=== PATIENT | female | born 1960 | race Caucasian/White ===

== ENCOUNTER → 2016-10-18 | Outpatient (CLI) | payer OTHER ==
[~2016-10-18] MED LIST: ADVIL PO; AMIT25TA2 PO; COLA100C2 PO; DULO1CAP2 PO; DULO20CA PO; FENT12PA TD; FLEXERIL PO; HYDROCODONE PO; LIDO5DIS EX; LOVA20TA2 PO; LYRI75CA OR; MELA5CAP3 PO; NEUR300C OR; PERC5TAB8 PO; TYLENOL #3 OR; VITAMIN D PO; ZOFR20TA PO; ambien PO; pennsaid TOP; tps cream
--- NOTE | 2016-11-09 00:52 | ECWPNPC ---
PATIENT NAME: COLTON BELL : 1960 GENDER: FEMALE VISIT DATE: 10/18/2016 DISCHARGE DATE: 10/18/16 1128 VISIT LOCKED DATE TIME: PHYSICIAN: MARIA ESTHER CANO RESOURCE: MARIA ESTHER CANO REASON FOR APPOINTMENT 1. BACK HISTORY OF PRESENT ILLNESS HISTORY OF PRESENT ILLNESS: HERE FOR F/U CHRONIC LBP BILAT. POSTERIOR SHOOTING LEG PAIN L>R .RATING PAIN7/10VAS.HERE FOR MEDICINE MANAGEMENT . THIS IS A WORK RELATED INJURY IN 2008.HX OF MULTPLE MEDICATION INTOLERANCES THAT WE HAVE TRIALED OVER THE YEARS.PAIN IS AGGREVATED BY PROLONGED SITTING OR STANDING.DESCRIBES PAIN CONSTANT STABBING AND THROBBING.REPORTS SHE HAS BEEN OUT OF FENTANYL PATCH 12 MCG Q72 X 3 MONTHS WHILE IN [place] AND SHE HAS EXPERIENCED AN ESCALATION IN PAIN.REPORTING ELECTRICAL SENSATIONS PERIODICALLY IN LOWER EXTREMITIES.TAKING GABAPENTIN 300MG BID. NOTICED IMPROVEMENT WITH SLEEP .REPORTS IMPROVEMENT IN CONSTIPATION WITH TAKING COLACE 100MG BID. PAIN THE PATIENT DESCRIBES THE PAIN... THE PATIENT DESCRIBES THE PAIN... THE PATIENT DESCRIBES THE PAIN... THE PATIENT DESCRIBES THE PAIN... THE PATIENT DESCRIBES THE PAIN... THE PATIENT DESCRIBES THE PAIN... FALL RISK SCREENING: SCREENING :NO FALLS IN THE PAST YEAR CURRENT MEDICATIONS TAKING ADVIL 200 MG TABLET 1 TABLET NEEDED ORALLY EVERY 6 HRS TAKING VITAMIN D 2000 UNIT TABLET 1 TABLET ORALLY BID TAKING FLONASE 50 MCG/DOSE INHALER 1 SPRAY IN EACH NOSTRIL NASALLY ONCE A DAY TAKING GABAPENTIN 300 MG CAPSULE DIRECTED ORALLY BID TAKING COLACE 100 MG CAPSULE 1 CAPSULE NEEDED ORALLY BID TAKING FENTANYL 12 MCG/HR PATCH 72 HOUR 1 PATCH TO SKIN TRANSDERMAL 1 PATCH [id number] MEDICATION LIST REVIEWED AND RECONCILED WITH THE PATIENT ALLERGIES LATEX (FOR ALLERGY USE ONLY): RASH: ALLERGY SURGICAL HISTORY HYSTERECTOMY BACK SURGERY LEFT CATARACT HOSPITALIZATION/MAJOR DIAGNOSTIC PROCEDURE NO HOSPITALIZATION HISTORY. REVIEW OF SYSTEMS CONSTITUTIONAL: ANY CHANGE IN YOUR MEDICAL CONDITION? NO . CHILLS NO . FEVER NO . INFECTION: DO YOU HAVE NEW INFECTIONS? NO . DO YOU HAVE HISTORY OF MRSA? NO . MUSCULOSKELETAL: ANY NEW PATTERNS OF PAIN OR NUMBNESS? YES. PT STATES SHE HAS NOT BEEN USING FENTANYL PATCH BECAUSE IT IS SUCH A HASSEL TO GET IT IN [facility] IN [place]. PT STATES SHE RETURNED FROM [place] AUGUST. PT STATES SHE DOES NOT HAVE PROBLEMS GETTING FENTANYL PATCH AT [facility] HERE IN [place]. PT STATES SHE NEEDS A NEW SCRIPT. PT RATES PAIN 01/04&NBSP;. GASTROENTEROLOGY: ANY NEW CHANGE IN BOWEL CONTROL? NO . GENITOURINARY: ANY NEW CHANGE IN BLADDER CONTROL? NO . IS THERE A CHANCE YOU COULD BE ? NO . HEMATOLOGY/LYMPH: DO YOU TAKE ANY BLOOD THINNERS? (FOR EXAMPLE- COUMADIN, PLAVIX, AGGRENOX, PLATEL, PRADAXA, OR XARELTO) NO . WHEN WAS YOUR LAST DOSE? DATE: TIME: . NEUROLOGY: HAVE YOU FALLEN IN THE PAST 6 MONTHS? NO . ANY NEW EXTREMITY NUMBNESS OR WEAKNESS? NO . CARDIOLOGY: DO YOU HAVE A PACEMAKER OR DEFIBRILLATOR? NO . RESPIRATORY: HAVE YOU BEEN SICK IN THE PAST WEEK? NO . FEVER NO . FLU LIKE SYMPTOMS? NO . COUGH NO . INTEGUMENTARY: DO YOU HAVE ANY RASHES OR OPEN SORES? NO . ALLERGIC/IMMUNO: ARE YOU ALLERGIC TO SHELLFISH OR IV DYE? NO . ANY NEW ALLERGIES? NO . PSYCHIATRIC: DO YOU HAVE THOUGHTS OF HURTING YOURSELF OR SOMEONE ELSE? NO . ARE YOU ABUSED, NEGLECTED, OR IN AN UNSAFE ENVIRONMENT? NO . ENDOCRINOLOGY: ARE YOU DIABETIC? YES, FENTANYL PATCH . OTHER: DO YOU NEED ANY PRESCRIPTIONS? NO . IF YES, PLEASE LIST: ____ . ANY NEW PROBLEMS WITH YOUR MEDICATIONS? NO . WHEN DID YOU LAST EAT? ____ . WHEN DID YOU LAST DRINK? ____ . WHAT DID YOU LAST DRINK? ____ . NAME OF PERSON DRIVING YOU HOME? ____ . DO YOU HAVE ANY OTHER QUESTIONS OR CONCERNS NO . REVIEWED BY: PROVIDER: MARIA ESTHER CORRAL . VITAL SIGNS WT 216.4 LBS, HT 70 IN, BMI 31.05 INDEX, BP 138/67 MM HG, HR 76 /MIN, RR 16 /MIN, TEMP 97.4 F, OXYGEN SAT % 97%, SAFE IN ENV? (Y/N) Y, NA INITIALS SC 11:00, REVIEWED BY: EM. EXAMINATION GENERAL EXAMINATION: LUNGS:LUNG SOUNDS ARE CLEAR. HEART:HEART RATE REGULAR. MUSCULOSKELETAL:*, MUSCLE STRENGTH TESTING 2/5 BILATERAL LOWER EXT., PALPATION: POSITIVE FOR PAIN OVER L/S SPINE. POSITIVE FOR PAIN OVER L/S PARASPINALS.WELL HEALED SURGICAL SCAR OVER L/S SPINE. DIAGNOSTIC: . ASSESSMENTS POST LAMINECTOMY SYNDROME - M96.1 (PRIMARY) TREATMENT POST LAMINECTOMY SYNDROME REFILL GABAPENTIN CAPSULE, 300 MG, DIRECTED, ORALLY, BID, 30 DAY(S), 60, REFILLS 5 REFILL COLACE CAPSULE, 100 MG, 1 CAPSULE NEEDED, ORALLY, BID, 30 DAY(S), 60 CAPSULE, REFILLS 5 REFILL FENTANYL PATCH 72 HOUR, 12 MCG/HR, 1 PATCH TO SKIN, TRANSDERMAL, 1 PATCH [id number], 30 DAY(S), 10, REFILLS 0 NOTES: ISTOP REGISTRY REVIEWED AND DEMNOSTRATES COMPLLIANCE. BRINGS IN MEDICATIONS WHICH IS APPROPRIATE FOR WHAT WAS DISPENSED. RECENT URINE TOXICOLOGY REVIEWED. NO UNAUTHORIZED MEDICATIONS. NO ILLICIT SUBSTANCES AND PRESCRIBED MEDICATIONS WERE PRESENT. , RISKS AND BENEFITS OF NARCOTIC/OPIOD MEDICATIONS WERE REVIEWED WITH PATIENT - THIS INCLUDES BUT IS NOT LIMITED TO RISK OF DEPENDANCE/DEVELOPMENT OF ADDICTION, MOOD DISTURBANCE AND DEPRESSION, OSTEOPOROSIS, HORMONAL AND LABIDAL CHANGES, RESPIRATORY DEPRESSION AND . PATIENT IS ADVISED NOT TO DRIVE WHILE ON THESE MEDICATIONS. PROCEDURES PN WORKMANS' COMP OPINION IN YOUR OPINION, WAS THE INCIDENT THAT THE PATIENT DESCRIBED THE COMPETENT MEDICAL CAUSE OF THIS INJURY/ILLNESS? YES ARE THE PATIENT'S COMPLAINTS CONSISTENT WITH HIS/HER HISTORY OF THE INJURY/ILLNESS? YES IS THE PATIENT'S HISTORY OF THE INJURY/ILLNESS CONSISTENT WITH YOUR OBJECTIVE FINDING? YES WHAT IS THE PERCENTAGE OF TEMPORARY IMPAIRMENT? MODERATE TO MARKED = 66.7% IS THE PATIENT WORKING? NO DOCTOR ON SITE: BETSY QUESADA MD PROCEDURE CODES FA211 ESTABILISHED PATIENT [facility] FACILITY CHARGE DISPOSITION & COMMUNICATION FOLLOW UP [address] CHASE-W/C ELECTRONICALLY SIGNED BY ELLIS FARFAN ON 11/08/2016 AT 01:53 PM EDT DISCLAIMER : THIS IS A VISIT SUMMARY EXTRACTED FROM THE [employer] CHART. IT IS NOT A COPY OF THE [employer] PROGRESS NOTE. RONAL
== END ==
LOC: M PAIN 10:40
PROVIDERS: ATTEND Nurse Practitioner Family
DX: G89.29 Other chronic pain (principal); M96.1 Postlaminectomy syndrome, not elsewhere classified; Z79.1 Long term (current) use of non-steroidal anti-inflammatories (NSAID); Z79.899 Other long term (current) drug therapy; Z79.891 Long term (current) use of opiate analgesic

== ENCOUNTER → 2016-11-15 | Outpatient (CLI) | payer OTHER ==
--- NOTE | 2016-11-28 23:42 | ECWPNPC ---
PATIENT NAME: COLTON BELL : 1960 GENDER: FEMALE VISIT DATE: 11/15/2016 DISCHARGE DATE: 11/15/16 1654 VISIT LOCKED DATE TIME: PHYSICIAN: BETSY CHASE RESOURCE: BETSY CHASE REASON FOR APPOINTMENT 1. W/C HISTORY OF PRESENT ILLNESS HISTORY OF PRESENT ILLNESS: PAIN THE PATIENT DESCRIBES THE PAIN... 56 YEAR OLD FEMALE PATIENT WITH HISTORY OF CHRONIC BACK AND NECK PAIN. PATIENT DESCRIBES THE PAIN ACHING, SHARP, THROBBING, AND SHOOTING WITH A PAIN SCORE OF 10/10 ON TODAY'S VISIT. 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 PATIENT REPORT OF HAVING BACK SURGERY IN SEPTEMBER OF 2009 AND IT DID NOT WORK FOR HER. PATIENT REPORTS OF DIFFICULTIES SLEEPING AT NIGHT DUE TO SPASTICITY AND CRAMPS. PATIENT REPORTS OF RADIATING PAIN DOWN BOTH LEGS FROM HER BACK. PATIENT DENIES UNEXPLAINABLE WEIGHT LOSS, FEVER, CHILLS, NEW CHANGES ON HER URINARY OR BOWEL CONTROL. FALL RISK SCREENING: SCREENING :NO FALLS IN THE PAST YEAR CURRENT MEDICATIONS TAKING ADVIL 200 MG TABLET 1 TABLET NEEDED ORALLY EVERY 6 HRS TAKING VITAMIN D 2000 UNIT TABLET 1 TABLET ORALLY BID TAKING FLONASE 50 MCG/DOSE INHALER 1 SPRAY IN EACH NOSTRIL NASALLY ONCE A DAY TAKING GABAPENTIN 300 MG CAPSULE DIRECTED ORALLY BID, NOTES: SENT TO [facility]ST TIME TAKING COLACE 100 MG CAPSULE 1 CAPSULE NEEDED ORALLY BID TAKING FENTANYL 12 MCG/HR PATCH 72 HOUR 1 PATCH TO SKIN TRANSDERMAL 1 PATCH [id number], NOTES: WENT TO [facility] MEDICATION LIST REVIEWED AND RECONCILED WITH THE PATIENT PAST MEDICAL HISTORY NO MEDICAL HISTORY. ALLERGIES LATEX (FOR ALLERGY USE ONLY): RASH: ALLERGY SURGICAL HISTORY HYSTERECTOMY BACK SURGERY LEFT CATARACT FAMILY HISTORY NO FAMILY HISTORY DOCUMENTED. SOCIAL HISTORY GENERAL: TOBACCO USE ARE YOU A:CURRENT SMOKER PATIENT COUNSELED ON THE DANGERS OF TOBACCO USE AND URGED TO QUIT:11/24/2015 ARE YOU INTERESTED IN QUITTING?NOT READY TO QUIT COUNSELED THE PATIENT ON SMOKING EFFECTS, EDUCATION [id number]/2016 LEARNING BARRIERS / SPECIAL NEEDS ABILITY TO UNDERSTAND VERBAL INSTRUCTIONS GOOD, ABILITY TO UNDERSTAND WRITTEN INSTRUCTIONS GOOD, KNOWLEDGE OF EDUCATIONAL NEEDS/TREATMENT PLAN GOOD, MORMONISM? NO, LEARNING PREFERENCE NO PREFERENCE, ORIENTED TO PLAN OF CARE: PATIENT, SIGNIFICANT OTHER, PAIN MANAGEMENT PATIENT, SIGNIFICANT OTHER. PAIN CLINIC PFS, CLERGY, PUBLIC HEALTH REFERRALS PFS REFERRAL NEEDED?NO CLERGY REFERRAL NEEDED?NO PUBLIC HEALTH REFERRAL NEEDED?NO WAS THE PROVIDER NOTIFIED OF ANY PERTINENT INFO?YES PATIENT: DENIES ABUSE OR MISUSE OF ANY MEDICATION. ADVANCE DIRECTIVES HEALTH CARE PROXY?NO POWER OF SALES DEVELOPER?NO SOCIAL HISTORY PATIENTDENIES ABUSE OR MISSUSED OF ANY MEDICATION HOSPITALIZATION/MAJOR DIAGNOSTIC PROCEDURE NO HOSPITALIZATION HISTORY. REVIEW OF SYSTEMS REVIEWED BY: PROVIDER: . CONSTITUTIONAL: ANY CHANGE IN YOUR MEDICAL CONDITION? NO . CHILLS NO . FEVER NO . INFECTION: DO YOU HAVE NEW INFECTIONS? NO . DO YOU HAVE HISTORY OF MRSA? NO . MUSCULOSKELETAL: ANY NEW PATTERNS OF PAIN OR NUMBNESS? NO . GASTROENTEROLOGY: ANY NEW CHANGE IN BOWEL CONTROL? NO . GENITOURINARY: ANY NEW CHANGE IN BLADDER CONTROL? NO . IS THERE A CHANCE YOU COULD BE ? NO . HEMATOLOGY/LYMPH: DO YOU TAKE ANY BLOOD THINNERS? (FOR EXAMPLE- COUMADIN, PLAVIX, AGGRENOX, PLATEL, PRADAXA, OR XARELTO) NO . WHEN WAS YOUR LAST DOSE? DATE: TIME: . NEUROLOGY: HAVE YOU FALLEN IN THE PAST 6 MONTHS? NO . ANY NEW EXTREMITY NUMBNESS OR WEAKNESS? NO . CARDIOLOGY: DO YOU HAVE A PACEMAKER OR DEFIBRILLATOR? NO . RESPIRATORY: HAVE YOU BEEN SICK IN THE PAST WEEK? NO . FEVER NO . FLU LIKE SYMPTOMS? NO . COUGH NO . INTEGUMENTARY: DO YOU HAVE ANY RASHES OR OPEN SORES? NO . ALLERGIC/IMMUNO: ARE YOU ALLERGIC TO SHELLFISH OR IV DYE? NO . ANY NEW ALLERGIES? NO . PSYCHIATRIC: DO YOU HAVE THOUGHTS OF HURTING YOURSELF OR SOMEONE ELSE? NO . ARE YOU ABUSED, NEGLECTED, OR IN AN UNSAFE ENVIRONMENT? NO . ENDOCRINOLOGY: ARE YOU DIABETIC? NO . OTHER: DO YOU NEED ANY PRESCRIPTIONS? NO . IF YES, PLEASE LIST: ____ . ANY NEW PROBLEMS WITH YOUR MEDICATIONS? NO . WHEN DID YOU LAST EAT? ____ . WHEN DID YOU LAST DRINK? ____ . WHAT DID YOU LAST DRINK? ____ . NAME OF PERSON DRIVING YOU HOME? ____ . DO YOU HAVE ANY OTHER QUESTIONS OR CONCERNS NO . VITAL SIGNS WT 218.8 LBS, HT 70 IN, BMI 31.39 INDEX, BP 150/86 MM HG, HR 86 /MIN, RR 18 /MIN, TEMP 98.0 F, OXYGEN SAT % 97%, NA INITIALS SC 14:52, REVIEWED BY: NL. EXAMINATION : PATIENT IS ALERT O X 3 AND COOPERATIVE. PATIENT AMBULATES WITH A CANE ON THE LEFT HAND, AND HAS AN ANTALGIC GAIT. PATIENT IS ABLE TO FLEX HER BACK TO 10 DEGREES AND EXTEND TO 2 DEGREES WITH PAIN AND DIFFICULTIES. THERE IS A SURGICAL SCAR 4 INS IN LENGTH IN THE LOW BACK. BOTH LEGS ARE WEAKER, WITH THE RIGHT LEG SLIGHTLY MORE WEAKER. MRI OF THE LUMBAR SPINE DONE ON 11/23/2014 SHOWS POST OPERATIVE CHANGES WITH STENOSIS. ASSESSMENTS LOW BACK PAIN - M54.5 (PRIMARY) POSTLAMINECTOMY SYNDROME, NOT ELSEWHERE CLASSIFIED - M96.1 TREATMENT LOW BACK PAIN NOTES: WE DISCUSSED SEVERAL ISSUES WITH MS. BELL'S PAIN MANAGEMENT CASE. AT THIS TIME I WILL HAVE THE PATIENT START ON GABAPENTIN FOR THE NEUROPATHIC PAIN DOWN THE LEGS AND ZANAFLEX FOR THE SPASTICITY. PATIENT BROUGHT HER MEDICATION INSTRUCTED THAT SHE NEEDS TO DO FOR EVERY FOLLOW UP. UTOX DONE ON 11/24/2014 SHOWS CONSISTENT RESULTS WITH WAS IS BEING PRESCRIBED FOR THE PATIENT. PATIENT WILL FOLLOW UP WITH ME IN 4 WEEKS. INSTRUCTIONS WERE GIVEN, QUESTIONS WERE ANSWERED, PATIENT REPORTS UNDERSTANDING AND AGREES WITH THE PLAN. I, FABIOLA HAMILTON, DOCUMENTED THE ABOVE INFORMATION ACTING A SCRIBE FOR DR. CHASE. I HAVE REVIEWED THE ABOVE DOCUMENT, WRITTEN BY FABIOLA BARRERAIBZuleima AND I VERIFY THAT IT IS ACCURATE. OTHERS START GABAPENTIN CAPSULE, 300 MG, 1 CAPSULE, ORALLY FOR PAIN, BEFORE BEDTIME, 30 DAY(S), 30, REFILLS 1 START ZANAFLEX CAPSULE, 2 MG, 1 CAPSULE NEEDED, ORALLY FOR SPASMS AND PAIN, BEFORE BEDTIME, 30 DAY(S), 60, REFILLS 1 PROCEDURES PN WORKMANS' COMP OPINION IN YOUR OPINION, WAS THE INCIDENT THAT THE PATIENT DESCRIBED THE COMPETENT MEDICAL CAUSE OF THIS INJURY/ILLNESS? YES ARE THE PATIENT'S COMPLAINTS CONSISTENT WITH HIS/HER HISTORY OF THE INJURY/ILLNESS? YES IS THE PATIENT'S HISTORY OF THE INJURY/ILLNESS CONSISTENT WITH YOUR OBJECTIVE FINDING? YES WHAT IS THE PERCENTAGE OF TEMPORARY IMPAIRMENT? MODERATE TO MARKED = 66.7% IS THE PATIENT WORKING? NO DOCTOR ON SITE: BETSY QUESADA MD PROCEDURE CODES FA211 ESTABILISHED PATIENT [facility] FACILITY CHARGE G8730 PAIN ASSESS POS TOOL F/U PLAN DOC G8427 DOC MEDS VERIFIED W/PT OR RE DISPOSITION & COMMUNICATION FOLLOW UP 4 WEEKS ELECTRONICALLY SIGNED BY BETSY CHASE MD ON 11/28/2016 AT 09:34 PM EDT DISCLAIMER : THIS IS A VISIT SUMMARY EXTRACTED FROM THE [employer] CHART. IT IS NOT A COPY OF THE [employer] PROGRESS NOTE. RONAL
== END ==
LOC: M PAIN 14:40
PROVIDERS: ATTEND Anesthesiology
DX: G89.29 Other chronic pain (principal); M54.5 Low back pain; M54.2 Cervicalgia; M96.1 Postlaminectomy syndrome, not elsewhere classified; F17.210 Nicotine dependence, cigarettes, uncomplicated; Z79.899 Other long term (current) drug therapy; Z91.040 Latex allergy status

== ENCOUNTER → 2016-12-06 | Outpatient (CLI) | payer OTHER ==
--- NOTE | 2016-12-28 00:15 | ECWPNPC ---
PATIENT NAME: COLTON BELL : 1960 GENDER: FEMALE VISIT DATE: 12/06/2016 DISCHARGE DATE: 12/06/16 1608 VISIT LOCKED DATE TIME: PHYSICIAN: MARIA ESTHER CANO RESOURCE: MARIA ESTHER CANO REASON FOR APPOINTMENT 1. WC, BACK HISTORY OF PRESENT ILLNESS HISTORY OF PRESENT ILLNESS: HERE FOR F/U CHRONIC LBP BILAT. POSTERIOR SHOOTING LEG PAIN L>R .RATING PAIN7/10VAS.HERE FOR MEDICINE MANAGEMENT . THIS IS A WORK RELATED INJURY IN 2008.HX OF MULTPLE MEDICATION INTOLERANCES THAT WE HAVE TRIALED OVER THE YEARS.PAIN IS AGGREVATED BY PROLONGED SITTING OR STANDING.DESCRIBES PAIN CONSTANT STABBING AND THROBBING.REPORTING ELECTRICAL SENSATIONS PERIODICALLY IN LOWER EXTREMITIES.TAKING GABAPENTIN 300MG BID. TAKING FENTANYL 12MCG Q72 HR. REPORTS IMPROVEMENT WITH SLEEP .REPORTS IMPROVEMENT IN CONSTIPATION WITH TAKING COLACE 100MG BID.HAS BEEN TRYING TO GET TIZANIDINE ORDERD LAST VISIT VIA COMPENSATION TO NO AVAIL. PAIN THE PATIENT DESCRIBES THE PAIN... THE PATIENT DESCRIBES THE PAIN... THE PATIENT DESCRIBES THE PAIN... THE PATIENT DESCRIBES THE PAIN... THE PATIENT DESCRIBES THE PAIN... THE PATIENT DESCRIBES THE PAIN... THE PATIENT DESCRIBES THE PAIN... FALL RISK SCREENING: SCREENING :NO FALLS IN THE PAST YEAR CURRENT MEDICATIONS TAKING ZANAFLEX 2 MG CAPSULE 1 CAPSULE NEEDED ORALLY FOR SPASMS AND PAIN BEFORE BEDTIME, NOTES: DID NOT RECEIVE TAKING ADVIL 200 MG TABLET 1 TABLET NEEDED ORALLY EVERY 6 HRS TAKING VITAMIN D 2000 UNIT TABLET 1 TABLET ORALLY BID TAKING FLONASE 50 MCG/DOSE INHALER 1 SPRAY IN EACH NOSTRIL NASALLY ONCE A DAY TAKING GABAPENTIN 300 MG CAPSULE DIRECTED ORALLY BID TAKING COLACE 100 MG CAPSULE 1 CAPSULE NEEDED ORALLY BID TAKING FENTANYL 12 MCG/HR PATCH 72 HOUR 1 PATCH TO SKIN TRANSDERMAL 1 PATCH S09M=TPU DISCONTINUED GABAPENTIN 300 MG CAPSULE 1 CAPSULE ORALLY FOR PAIN BEFORE BEDTIME MEDICATION LIST REVIEWED AND RECONCILED WITH THE PATIENT ALLERGIES LATEX (FOR ALLERGY USE ONLY): RASH: ALLERGY REVIEW OF SYSTEMS REVIEWED BY: PROVIDER: MARIA ESTHER CORRAL . CONSTITUTIONAL: ANY CHANGE IN YOUR MEDICAL CONDITION? NO . CHILLS NO . FEVER NO . INFECTION: DO YOU HAVE NEW INFECTIONS? NO . DO YOU HAVE HISTORY OF MRSA? NO . MUSCULOSKELETAL: ANY NEW PATTERNS OF PAIN OR NUMBNESS? NO . GASTROENTEROLOGY: ANY NEW CHANGE IN BOWEL CONTROL? NO . GENITOURINARY: ANY NEW CHANGE IN BLADDER CONTROL? NO . IS THERE A CHANCE YOU COULD BE ? NO . HEMATOLOGY/LYMPH: DO YOU TAKE ANY BLOOD THINNERS? (FOR EXAMPLE- COUMADIN, PLAVIX, AGGRENOX, PLATEL, PRADAXA, OR XARELTO) NO . WHEN WAS YOUR LAST DOSE? DATE: TIME: . NEUROLOGY: HAVE YOU FALLEN IN THE PAST 6 MONTHS? NO . ANY NEW EXTREMITY NUMBNESS OR WEAKNESS? NO . CARDIOLOGY: DO YOU HAVE A PACEMAKER OR DEFIBRILLATOR? NO . RESPIRATORY: HAVE YOU BEEN SICK IN THE PAST WEEK? NO . FEVER NO . FLU LIKE SYMPTOMS? NO . COUGH NO . INTEGUMENTARY: DO YOU HAVE ANY RASHES OR OPEN SORES? NO . ALLERGIC/IMMUNO: ARE YOU ALLERGIC TO SHELLFISH OR IV DYE? NO . ANY NEW ALLERGIES? NO . PSYCHIATRIC: DO YOU HAVE THOUGHTS OF HURTING YOURSELF OR SOMEONE ELSE? NO . ARE YOU ABUSED, NEGLECTED, OR IN AN UNSAFE ENVIRONMENT? NO . ENDOCRINOLOGY: ARE YOU DIABETIC? NO . OTHER: DO YOU NEED ANY PRESCRIPTIONS? NO . IF YES, PLEASE LIST: ____ . ANY NEW PROBLEMS WITH YOUR MEDICATIONS? NO . WHEN DID YOU LAST EAT? ____ . WHEN DID YOU LAST DRINK? ____ . WHAT DID YOU LAST DRINK? ____ . NAME OF PERSON DRIVING YOU HOME? ____ . DO YOU HAVE ANY OTHER QUESTIONS OR CONCERNS NO . VITAL SIGNS WT 218.2 LBS, HT 70 IN, BMI 31.31 INDEX, BP 129/69 MM HG, HR 76 /MIN, RR 16 /MIN, TEMP 98.4 F, OXYGEN SAT % 96%, NA INITIALS SC 15:13, REVIEWED BY: SONI. EXAMINATION GENERAL EXAMINATION: LUNGS:LUNG SOUNDS ARE CLEAR. HEART:HEART RATE REGULAR. MUSCULOSKELETAL:*, MUSCLE STRENGTH TESTING 2/5 BILATERAL LOWER EXT., PALPATION: POSITIVE FOR PAIN OVER L/S SPINE. POSITIVE FOR PAIN OVER L/S PARASPINALS.WELL HEALED SURGICAL SCAR OVER L/S SPINE. DIAGNOSTIC: . ASSESSMENTS POST LAMINECTOMY SYNDROME - M96.1 (PRIMARY) CHRONIC PRESCRIPTION OPIATE USE - Z79.891 TREATMENT POST LAMINECTOMY SYNDROME CONTINUE GABAPENTIN CAPSULE, 300 MG, DIRECTED, ORALLY, BID CONTINUE COLACE CAPSULE, 100 MG, 1 CAPSULE NEEDED, ORALLY, BID REFILL FENTANYL PATCH 72 HOUR, 12 MCG/HR, 1 PATCH TO SKIN, TRANSDERMAL, 1 PATCH [id number]=BHW, 30 DAY(S), 10, REFILLS 0 NOTES: ISTOP REGISTRY REVIEWED AND DEMNOSTRATES COMPLLIANCE. BRINGS IN MEDICATIONS WHICH IS APPROPRIATE FOR WHAT WAS DISPENSED. RECENT URINE TOXICOLOGY REVIEWED. NO UNAUTHORIZED MEDICATIONS. NO ILLICIT SUBSTANCES AND PRESCRIBED MEDICATIONS WERE PRESENT. , RISKS AND BENEFITS OF NARCOTIC/OPIOD MEDICATIONS WERE REVIEWED WITH PATIENT - THIS INCLUDES BUT IS NOT LIMITED TO RISK OF DEPENDANCE/DEVELOPMENT OF ADDICTION, MOOD DISTURBANCE AND DEPRESSION, OSTEOPOROSIS, HORMONAL AND LABIDAL CHANGES, RESPIRATORY DEPRESSION AND . PATIENT IS ADVISED NOT TO DRIVE WHILE ON THESE MEDICATIONS. PROCEDURES PN WORKMANS' COMP OPINION IN YOUR OPINION, WAS THE INCIDENT THAT THE PATIENT DESCRIBED THE COMPETENT MEDICAL CAUSE OF THIS INJURY/ILLNESS? YES ARE THE PATIENT'S COMPLAINTS CONSISTENT WITH HIS/HER HISTORY OF THE INJURY/ILLNESS? YES IS THE PATIENT'S HISTORY OF THE INJURY/ILLNESS CONSISTENT WITH YOUR OBJECTIVE FINDING? YES WHAT IS THE PERCENTAGE OF TEMPORARY IMPAIRMENT? MODERATE TO MARKED = 66.7% IS THE PATIENT WORKING? NO DOCTOR ON SITE: BETSY QUESADA MD PROCEDURE CODES FA211 ESTABILISHED PATIENT [facility] CHARGE DISPOSITION & COMMUNICATION FOLLOW UP [address] CHSAE W/C ELECTRONICALLY SIGNED BY ELLIS FARFAN ON 12/27/2016 AT 07:48 PM EDT DISCLAIMER : THIS IS A VISIT SUMMARY EXTRACTED FROM THE [employer] CHART. IT IS NOT A COPY OF THE [employer] PROGRESS NOTE. [employer]
== END ==
LOC: M PAIN 13:50
PROVIDERS: ATTEND Nurse Practitioner Family
DX: G89.29 Other chronic pain (principal); M96.1 Postlaminectomy syndrome, not elsewhere classified; Z79.891 Long term (current) use of opiate analgesic; Z79.899 Other long term (current) drug therapy; Z91.040 Latex allergy status

== ENCOUNTER → 2017-02-12 | Outpatient (CLI) | payer OTHER ==
--- NOTE | 2017-02-13 01:10 | ECWPNPC ---
PATIENT NAME: COLTON BELL : 1960 GENDER: FEMALE VISIT DATE: 02/12/2017 DISCHARGE DATE: 02/12/17 1404 VISIT LOCKED DATE TIME: PHYSICIAN: MARIA ESTHER CANO RESOURCE: MARIA ESTHER CANO REASON FOR APPOINTMENT 1. WC, BACK HISTORY OF PRESENT ILLNESS HISTORY OF PRESENT ILLNESS: HERE FOR F/U CHRONIC LBP BILAT. POSTERIOR SHOOTING LEG PAIN L>R .RATING PAIN8/10VAS.HERE FOR MEDICINE MANAGEMENT . THIS IS A WORK RELATED INJURY IN 2008.HX OF MULTPLE MEDICATION INTOLERANCES THAT WE HAVE TRIALED OVER THE YEARS.PAIN IS AGGREVATED BY PROLONGED SITTING OR STANDING.DESCRIBES PAIN CONSTANT STABBING AND THROBBING.REPORTING ELECTRICAL SENSATIONS PERIODICALLY IN LOWER EXTREMITIES.REPORTING POOR SLEEP DUE TO NIGHTTIME LEG CRAMPING AND RESTLESS LEGS.TAKING GABAPENTIN 300MG BID. TAKING FENTANYL 12MCG Q72 HR.. REPORTING LOCAL IRRITATION FROM PATCH .REPORTS IMPROVEMENT IN CONSTIPATION WITH TAKING COLACE 100MG BID. PAIN THE PATIENT DESCRIBES THE PAIN... THE PATIENT DESCRIBES THE PAIN... THE PATIENT DESCRIBES THE PAIN... THE PATIENT DESCRIBES THE PAIN... THE PATIENT DESCRIBES THE PAIN... THE PATIENT DESCRIBES THE PAIN... THE PATIENT DESCRIBES THE PAIN... THE PATIENT DESCRIBES THE PAIN... FALL RISK SCREENING: SCREENING :NO FALLS IN THE PAST YEAR CURRENT MEDICATIONS TAKING ADVIL 200 MG TABLET 1 TABLET NEEDED ORALLY EVERY 6 HRS TAKING VITAMIN D 2000 UNIT TABLET 1 TABLET ORALLY BID TAKING FLONASE 50 MCG/DOSE INHALER 1 SPRAY IN EACH NOSTRIL NASALLY ONCE A DAY TAKING GABAPENTIN 300 MG CAPSULE DIRECTED ORALLY BID TAKING COLACE 100 MG CAPSULE 1 CAPSULE NEEDED ORALLY BID TAKING FENTANYL 12 MCG/HR PATCH 72 HOUR 1 PATCH TO SKIN TRANSDERMAL 1 PATCH [id number]=FUA NOT-TAKING ZANAFLEX 2 MG CAPSULE 1 CAPSULE NEEDED ORALLY FOR SPASMS AND PAIN BEFORE BEDTIME, NOTES: DID NOT RECEIVE MEDICATION LIST REVIEWED AND RECONCILED WITH THE PATIENT ALLERGIES LATEX (FOR ALLERGY USE ONLY): RASH: ALLERGY SOCIAL HISTORY GENERAL: TOBACCO USE ARE YOU A:CURRENT SMOKER PATIENT COUNSELED ON THE DANGERS OF TOBACCO USE AND URGED TO QUIT:02/12/2017 ARE YOU INTERESTED IN QUITTING?NOT READY TO QUIT COUNSELED THE PATIENT ON SMOKING EFFECTS, EDUCATION [id number]/18/2017 LEARNING BARRIERS / SPECIAL NEEDS ABILITY TO UNDERSTAND VERBAL INSTRUCTIONS GOOD, ABILITY TO UNDERSTAND WRITTEN INSTRUCTIONS GOOD, KNOWLEDGE OF EDUCATIONAL NEEDS/TREATMENT PLAN GOOD, MUSLIM? NO, LEARNING PREFERENCE NO PREFERENCE, ORIENTED TO PLAN OF CARE: PATIENT, SIGNIFICANT OTHER, PAIN MANAGEMENT PATIENT, SIGNIFICANT OTHER. PAIN CLINIC PFS, CLERGY, PUBLIC HEALTH REFERRALS PFS REFERRAL NEEDED?NO CLERGY REFERRAL NEEDED?NO PUBLIC HEALTH REFERRAL NEEDED?NO WAS THE PROVIDER NOTIFIED OF ANY PERTINENT INFO?YES HAS THE PATIENT BEEN EDUCATED REGARDING HIS/HER PLAN OF CARE?YES HAS THE PATIENT BEEN EDUCATED REGARDING PAIN, THE RISK FOR PAIN, THE IMPORTANCE OF EFFECTIVE PAIN MANAGEMENT, AND THE PAIN ASSESSMENT PROCESS?YES PATIENT: DENIES ABUSE OR MISUSE OF ANY MEDICATION. ADVANCE DIRECTIVES HEALTH CARE PROXY?NO POWER OF ETIOLOGY TEACHER?NO SOCIAL HISTORY PATIENTDENIES ABUSE OR MISSUSED OF ANY MEDICATION REVIEW OF SYSTEMS REVIEWED BY: PROVIDER: MARIA ESTHER CORRAL . CONSTITUTIONAL: ANY CHANGE IN YOUR MEDICAL CONDITION? NO . CHILLS NO . FEVER NO . INFECTION: DO YOU HAVE NEW INFECTIONS? NO . DO YOU HAVE HISTORY OF MRSA? NO . MUSCULOSKELETAL: ANY NEW PATTERNS OF PAIN OR NUMBNESS? NO . GASTROENTEROLOGY: ANY NEW CHANGE IN BOWEL CONTROL? NO . GENITOURINARY: ANY NEW CHANGE IN BLADDER CONTROL? NO . IS THERE A CHANCE YOU COULD BE ? NO . HEMATOLOGY/LYMPH: DO YOU TAKE ANY BLOOD THINNERS? (FOR EXAMPLE- COUMADIN, PLAVIX, AGGRENOX, PLATEL, PRADAXA, OR XARELTO) NO . WHEN WAS YOUR LAST DOSE? DATE: TIME: . NEUROLOGY: HAVE YOU FALLEN IN THE PAST 6 MONTHS? NO . ANY NEW EXTREMITY NUMBNESS OR WEAKNESS? NO . CARDIOLOGY: DO YOU HAVE A PACEMAKER OR DEFIBRILLATOR? NO . RESPIRATORY: HAVE YOU BEEN SICK IN THE PAST WEEK? NO . FEVER NO . FLU LIKE SYMPTOMS? NO . COUGH NO . INTEGUMENTARY: DO YOU HAVE ANY RASHES OR OPEN SORES? NO . ALLERGIC/IMMUNO: ARE YOU ALLERGIC TO SHELLFISH OR IV DYE? NO . ANY NEW ALLERGIES? NO . PSYCHIATRIC: DO YOU HAVE THOUGHTS OF HURTING YOURSELF OR SOMEONE ELSE? NO . ARE YOU ABUSED, NEGLECTED, OR IN AN UNSAFE ENVIRONMENT? NO . ENDOCRINOLOGY: ARE YOU DIABETIC? NO . OTHER: DO YOU NEED ANY PRESCRIPTIONS? YES FENTANYL PATCH . IF YES, PLEASE LIST: ____ . ANY NEW PROBLEMS WITH YOUR MEDICATIONS? NO . WHEN DID YOU LAST EAT? ____ . WHEN DID YOU LAST DRINK? ____ . WHAT DID YOU LAST DRINK? ____ . NAME OF PERSON DRIVING YOU HOME? ____ . DO YOU HAVE ANY OTHER QUESTIONS OR CONCERNS NO . VITAL SIGNS WT 218.2 LBS, HT 70 IN, BMI 31.31 INDEX, BP 120/69 MM HG, HR 83 /MIN, RR 18 /MIN, TEMP 98.8 F, OXYGEN SAT % 95%, SAFE IN ENV? (Y/N) YES, NA INITIALS SC 13:26, REVIEWED BY: NICOLE. EXAMINATION GENERAL EXAMINATION: LUNGS:LUNG SOUNDS ARE CLEAR. HEART:HEART RATE REGULAR. MUSCULOSKELETAL:*, MUSCLE STRENGTH TESTING 2/5 BILATERAL LOWER EXT., PALPATION: POSITIVE FOR PAIN OVER L/S SPINE. POSITIVE FOR PAIN OVER L/S PARASPINALS.WELL HEALED SURGICAL SCAR OVER L/S SPINE. DIAGNOSTIC: . ASSESSMENTS POST LAMINECTOMY SYNDROME - M96.1 (PRIMARY) CHRONIC PRESCRIPTION OPIATE USE - Z79.891 TREATMENT POST LAMINECTOMY SYNDROME INCREASE GABAPENTIN CAPSULE, 300 MG, DIRECTED, ORALLY, ONE IN AM ,2 AT HS, 30 DAY(S), 90, REFILLS 2 REFILL COLACE CAPSULE, 100 MG, 1 CAPSULE NEEDED, ORALLY, BID, 30 DAY(S), 60, REFILLS 2 STOP FENTANYL PATCH 72 HOUR, 12 MCG/HR, 1 PATCH TO SKIN, TRANSDERMAL, 1 PATCH T67B=QDT, 30 DAY(S), 10 START ZANAFLEX TABLET, 2 MG, 1 CAPSULE NEEDED, ORALLY, BEFORE BEDTIME, 30 DAY(S), 30, REFILLS 1, NOTES: DID NOT RECEIVE PROCEDURES PN WORKMANS' COMP OPINION IN YOUR OPINION, WAS THE INCIDENT THAT THE PATIENT DESCRIBED THE COMPETENT MEDICAL CAUSE OF THIS INJURY/ILLNESS? YES ARE THE PATIENT'S COMPLAINTS CONSISTENT WITH HIS/HER HISTORY OF THE INJURY/ILLNESS? YES IS THE PATIENT'S HISTORY OF THE INJURY/ILLNESS CONSISTENT WITH YOUR OBJECTIVE FINDING? YES WHAT IS THE PERCENTAGE OF TEMPORARY IMPAIRMENT? MODERATE TO MARKED = 66.7% IS THE PATIENT WORKING? NO DOCTOR ON SITE: BETSY QUESADA MD PROCEDURE CODES FA211 ESTABILISHED PATIENT [facility] FACILITY CHARGE DISPOSITION & COMMUNICATION FOLLOW UP 4 WEEKS ELECTRONICALLY SIGNED BY ELLIS FARFAN ON 02/12/2017 AT 02:07 PM EDT DISCLAIMER : THIS IS A VISIT SUMMARY EXTRACTED FROM THE [email or web address] CHART. IT IS NOT A COPY OF THE [email or web address] PROGRESS NOTE. RONAL
== END ==
LOC: M PAIN 13:15
PROVIDERS: ATTEND Nurse Practitioner Family
DX: G89.29 Other chronic pain (principal); M96.1 Postlaminectomy syndrome, not elsewhere classified; F17.210 Nicotine dependence, cigarettes, uncomplicated; Z79.891 Long term (current) use of opiate analgesic; Z91.040 Latex allergy status; Z79.899 Other long term (current) drug therapy

== ENCOUNTER → 2017-03-08 | Outpatient (CLI) | payer OTHER ==
--- NOTE | 2017-03-28 01:02 | ECWPNPC ---
PATIENT NAME: COLTON BELL : 1960 GENDER: FEMALE VISIT DATE: 03/08/2017 DISCHARGE DATE: 03/08/17 1104 VISIT LOCKED DATE TIME: PHYSICIAN: MARIA ESTHER CANO RESOURCE: MARIA ESTHER CANO REASON FOR APPOINTMENT 1. WC, BACK HISTORY OF PRESENT ILLNESS HISTORY OF PRESENT ILLNESS: HERE FOR F/U AND MEDICINE MANAGEMENT OF CHRONIC LOW BACK PAIN AND BILATERAL POSTERIOR LEG PAIN.FENTANYL PATCH WAS STARTED LAST VISIT BUT WAS NOT ABLE TO TOLERATE SKIN IRRITATION.STARTED TIZANIDINE 2MG AT 6PM WITH REPORTS OF URINARY INCONTINENCE.TAKING GABAPENTIN 300MG ONE IN AM AND TWO AT HS.THIS WAS AN INCREASE.SHE ISNT NOTICING A DIFFERENCE IN HER PAIN.CONTINUES WITH ELCTRICAL SENSATIONS IN BOTH LEGS LEFT>RIGHT.DISCUSSED MEDICATION AND TREATMENT OPTIONS.RATING PAIN VAS 8/10. PAIN THE PATIENT DESCRIBES THE PAIN... FALL RISK SCREENING: SCREENING :NO FALLS IN THE PAST YEAR CURRENT MEDICATIONS TAKING ADVIL 200 MG TABLET 1 TABLET NEEDED ORALLY EVERY 6 HRS TAKING VITAMIN D 2000 UNIT TABLET 1 TABLET ORALLY BID TAKING FLONASE 50 MCG/DOSE INHALER 1 SPRAY IN EACH NOSTRIL NASALLY ONCE A DAY TAKING GABAPENTIN 300 MG CAPSULE DIRECTED ORALLY ONE IN AM ,2 AT HS TAKING COLACE 100 MG CAPSULE 1 CAPSULE NEEDED ORALLY BID NOT-TAKING ZANAFLEX 2 MG TABLET 1 CAPSULE NEEDED ORALLY BEFORE BEDTIME NOT-TAKING TIZANIDINE HCL 2 MG TABLET 1 TABLET NEEDED ORALLY ONE AT HS PRN MEDICATION LIST REVIEWED AND RECONCILED WITH THE PATIENT PAST MEDICAL HISTORY MEDICAL HISTORY VERIFIED. ALLERGIES LATEX (FOR ALLERGY USE ONLY): RASH: ALLERGY SURGICAL HISTORY HYSTERECTOMY BACK SURGERY LEFT CATARACT SOCIAL HISTORY GENERAL: TOBACCO USE ARE YOU A:CURRENT SMOKER PATIENT COUNSELED ON THE DANGERS OF TOBACCO USE AND URGED TO QUIT:02/12/2017 ARE YOU INTERESTED IN QUITTING?NOT READY TO QUIT COUNSELED THE PATIENT ON SMOKING EFFECTS, EDUCATION [id number]/18/2017 LEARNING BARRIERS / SPECIAL NEEDS ABILITY TO UNDERSTAND VERBAL INSTRUCTIONS GOOD, ABILITY TO UNDERSTAND WRITTEN INSTRUCTIONS GOOD, KNOWLEDGE OF EDUCATIONAL NEEDS/TREATMENT PLAN GOOD, NONDENOMINATIONAL? NO, LEARNING PREFERENCE NO PREFERENCE, ORIENTED TO PLAN OF CARE: PATIENT, SIGNIFICANT OTHER, PAIN MANAGEMENT PATIENT, SIGNIFICANT OTHER. PAIN CLINIC PFS, CLERGY, PUBLIC HEALTH REFERRALS PFS REFERRAL NEEDED?NO CLERGY REFERRAL NEEDED?NO PUBLIC HEALTH REFERRAL NEEDED?NO WAS THE PROVIDER NOTIFIED OF ANY PERTINENT INFO?YES HAS THE PATIENT BEEN EDUCATED REGARDING HIS/HER PLAN OF CARE?YES HAS THE PATIENT BEEN EDUCATED REGARDING PAIN, THE RISK FOR PAIN, THE IMPORTANCE OF EFFECTIVE PAIN MANAGEMENT, AND THE PAIN ASSESSMENT PROCESS?YES PATIENT: DENIES ABUSE OR MISUSE OF ANY MEDICATION. ADVANCE DIRECTIVES HEALTH CARE PROXY?NO POWER OF WHOLESALER?NO SOCIAL HISTORY PATIENTDENIES ABUSE OR MISSUSED OF ANY MEDICATION HOSPITALIZATION/MAJOR DIAGNOSTIC PROCEDURE SURGERY RELATED REVIEW OF SYSTEMS REVIEWED BY: PROVIDER: MARIA ESTHER CORRAL . CONSTITUTIONAL: ANY CHANGE IN YOUR MEDICAL CONDITION? NO . CHILLS NO . FEVER NO . INFECTION: DO YOU HAVE NEW INFECTIONS? YES, URI . DO YOU HAVE HISTORY OF MRSA? NO . MUSCULOSKELETAL: ANY NEW PATTERNS OF PAIN OR NUMBNESS? NO . GASTROENTEROLOGY: ANY NEW CHANGE IN BOWEL CONTROL? NO . GENITOURINARY: ANY NEW CHANGE IN BLADDER CONTROL? NO . IS THERE A CHANCE YOU COULD BE ? NO . HEMATOLOGY/LYMPH: DO YOU TAKE ANY BLOOD THINNERS? (FOR EXAMPLE- COUMADIN, PLAVIX, AGGRENOX, PLATEL, PRADAXA, OR XARELTO) NO . WHEN WAS YOUR LAST DOSE? DATE: TIME: . NEUROLOGY: HAVE YOU FALLEN IN THE PAST 6 MONTHS? NO . ANY NEW EXTREMITY NUMBNESS OR WEAKNESS? NO . CARDIOLOGY: DO YOU HAVE A PACEMAKER OR DEFIBRILLATOR? NO . RESPIRATORY: HAVE YOU BEEN SICK IN THE PAST WEEK? NO . FEVER NO . FLU LIKE SYMPTOMS? NO . COUGH NO . INTEGUMENTARY: DO YOU HAVE ANY RASHES OR OPEN SORES? NO . ALLERGIC/IMMUNO: ARE YOU ALLERGIC TO SHELLFISH OR IV DYE? NO . ANY NEW ALLERGIES? NO . PSYCHIATRIC: DO YOU HAVE THOUGHTS OF HURTING YOURSELF OR SOMEONE ELSE? NO . ARE YOU ABUSED, NEGLECTED, OR IN AN UNSAFE ENVIRONMENT? NO . ENDOCRINOLOGY: ARE YOU DIABETIC? NO . OTHER: DO YOU NEED ANY PRESCRIPTIONS? NO . IF YES, PLEASE LIST: ____ . ANY NEW PROBLEMS WITH YOUR MEDICATIONS? YES, PT C/O STRESS URINARY INCONTENENCE WHILE TAKING TIZANIDINE. PT STOPPED TIZANIDINE AND STRESS INCONTENENCE STOPPED . WHEN DID YOU LAST EAT? ____ . WHEN DID YOU LAST DRINK? ____ . WHAT DID YOU LAST DRINK? ____ . NAME OF PERSON DRIVING YOU HOME? ____ . DO YOU HAVE ANY OTHER QUESTIONS OR CONCERNS NO, PT DENIES GETTING FLU SHOT THIS YEAR, PT STATES SHE HASN'T HAD THE VACCINE IN A COUPLE YEARS . VITAL SIGNS WT 228.2 LBS, HT 70 IN, BMI 32.74 INDEX, BP 147/81 MM HG, HR 88 /MIN, RR 18 /MIN, TEMP 97.5 F, OXYGEN SAT % 95%, NA INITIALS AW 1016, REVIEWED BY: EM. EXAMINATION GENERAL EXAMINATION: LUNGS:LUNG SOUNDS ARE CLEAR. HEART:HEART RATE REGULAR. MUSCULOSKELETAL:*, MUSCLE STRENGTH TESTING 2/5 BILATERAL LOWER EXT., PALPATION: POSITIVE FOR PAIN OVER L/S SPINE. POSITIVE FOR PAIN OVER L/S PARASPINALS.WELL HEALED SURGICAL SCAR OVER L/S SPINE.SPECIFIC POIN TENDERNESS OVER BILATERAL L4/5-L5/S1 FACET JOINTS BILATERAL WITH FACET LOADING. DIAGNOSTIC: . ASSESSMENTS POST LAMINECTOMY SYNDROME - M96.1 (PRIMARY) CHRONIC PRESCRIPTION OPIATE USE - Z79.891 TREATMENT POST LAMINECTOMY SYNDROME INCREASE GABAPENTIN CAPSULE, 300 MG, DIRECTED, ORALLY, 2 AM,1 12N,2 PM, 30 DAY(S), 150, REFILLS 2 STOP ZANAFLEX TABLET, 2 MG, 1 CAPSULE NEEDED, ORALLY, BEFORE BEDTIME CONTINUE COLACE CAPSULE, 100 MG, 1 CAPSULE NEEDED, ORALLY, BID NOTES: REQUEST BILAT. L4/5-L5/S1 LUMBAR THERAPEUTIC BLOCK W/C. PROCEDURES PN WORKMANS' COMP OPINION IN YOUR OPINION, WAS THE INCIDENT THAT THE PATIENT DESCRIBED THE COMPETENT MEDICAL CAUSE OF THIS INJURY/ILLNESS? YES ARE THE PATIENT'S COMPLAINTS CONSISTENT WITH HIS/HER HISTORY OF THE INJURY/ILLNESS? YES IS THE PATIENT'S HISTORY OF THE INJURY/ILLNESS CONSISTENT WITH YOUR OBJECTIVE FINDING? YES WHAT IS THE PERCENTAGE OF TEMPORARY IMPAIRMENT? MODERATE TO MARKED = 66.7% IS THE PATIENT WORKING? NO DOCTOR ON SITE: BETSY QUESADA MD PROCEDURE CODES FA211 ESTABILISHED PATIENT [facility] FACILITY CHARGE DISPOSITION & COMMUNICATION FOLLOW UP 3 WEEKS (REASON: REQUEST BILAT. L4/5-L5/S1 LUMBAR THERAPEUTIC BLOCK W/C) ELECTRONICALLY SIGNED BY ELLIS FARFAN ON 03/27/2017 AT 06:45 PM EDT DISCLAIMER : THIS IS A VISIT SUMMARY EXTRACTED FROM THE [facility] CHART. IT IS NOT A COPY OF THE [facility] PROGRESS NOTE. MTDD
== END ==
LOC: M PAIN 10:15
PROVIDERS: ATTEND Nurse Practitioner Family
DX: M96.1 Postlaminectomy syndrome, not elsewhere classified (principal); M54.5 Low back pain; F17.210 Nicotine dependence, cigarettes, uncomplicated; Z91.040 Latex allergy status; Z79.899 Other long term (current) drug therapy

== ENCOUNTER → 2017-04-04 | Outpatient (CLI) | payer OTHER ==
[~2017-04-04] MED LIST changes: +BUPIVACAINE HCL 0.25% 30 ML VIAL As Ordered ONE; +ISOVUE-M 300 61% 15ML VIAL (Q9967) As Ordered ONE; +LIDOCAINE 1% SDV INJ 30 ML VIAL As Ordered ONE; +TRIAMCINOLONE ACETONIDE SUSP 40 MG/ML VIAL (J3301) As Ordered ONE; +diazePAM 5 MG TAB As Ordered ONE; +oxyCODONE 5MG TAB As Ordered ONE
--- NOTE | 2017-04-04 18:41 | REP ---
FLUOROSCOPIC GUIDANCE FOR LUMBAR FACET BLOCK: 04/04/2017. Clinical history: Back pain. Findings: Four images from C-arm fluoroscopy provided to Dr. Larose of the pain clinic for bilateral L4-5 and L5-S1 facet injections. There are needles at L4-5 and L5-S1 on each projection, first on the left side with the second image showing the contrast and then the right side performed at those levels with contrast on the fourth image. Fluoroscopy time: 50 seconds. Signed by Zoran Johnson MD 04/05/2017 09:54 A
--- NOTE | 2017-04-09 23:59 | ECWPNPC ---
PATIENT NAME: COLTON BELL : 1960 GENDER: FEMALE VISIT DATE: 04/04/2017 DISCHARGE DATE: 04/04/17 1258 VISIT LOCKED DATE TIME: PHYSICIAN: BETSY CHASE RESOURCE: BETSY CHASE REASON FOR APPOINTMENT 1. W/C,GREGORIO. THER FACET HISTORY OF PRESENT ILLNESS HISTORY OF PRESENT ILLNESS: PAIN THE PATIENT DESCRIBES THE PAIN... FALL RISK SCREENING: SCREENING :NO FALLS IN THE PAST YEAR CURRENT MEDICATIONS TAKING ADVIL 200 MG TABLET 1 TABLET NEEDED ORALLY EVERY 6 HRS, NOTES: NONE RECENTLY TAKING VITAMIN D 2000 UNIT TABLET 1 TABLET ORALLY BID, NOTES: 30 TAKING FLONASE 50 MCG/DOSE INHALER 1 SPRAY IN EACH NOSTRIL NASALLY ONCE A DAY, NOTES: 629 TAKING GABAPENTIN 300 MG CAPSULE DIRECTED ORALLY 2 AM,1 12N,2 PM, NOTES: 30 TAKING COLACE 100 MG CAPSULE 1 CAPSULE NEEDED ORALLY BID, NOTES: 30 TAKING OXYCODONE HCL 5 MG TABLET 1-2 ORALLY EVERY 6 HRS PRN MDD4, NOTES: 30 DISCONTINUED TIZANIDINE HCL 2 MG TABLET 1 TABLET NEEDED ORALLY ONE AT HS PRN MEDICATION LIST REVIEWED AND RECONCILED WITH THE PATIENT PAST MEDICAL HISTORY CHRONIC LOW BACK PAIN ALLERGIES LATEX (FOR ALLERGY USE ONLY): RASH: ALLERGY SOCIAL HISTORY GENERAL: TOBACCO USE ARE YOU A:CURRENT SMOKER ARE YOU INTERESTED IN QUITTING?NOT READY TO QUIT COUNSELED THE PATIENT ON SMOKING EFFECTS, EDUCATION [id number]/08/2017 PATIENT COUNSELED ON THE DANGERS OF TOBACCO USE AND URGED TO QUIT:04/04/2017 LEARNING BARRIERS / SPECIAL NEEDS ABILITY TO UNDERSTAND VERBAL INSTRUCTIONS GOOD, ABILITY TO UNDERSTAND WRITTEN INSTRUCTIONS GOOD, KNOWLEDGE OF EDUCATIONAL NEEDS/TREATMENT PLAN GOOD, TAOISM? NO, LEARNING PREFERENCE NO PREFERENCE, ORIENTED TO PLAN OF CARE: PATIENT, SIGNIFICANT OTHER, PAIN MANAGEMENT PATIENT, SIGNIFICANT OTHER. PAIN CLINIC PFS, CLERGY, PUBLIC HEALTH REFERRALS PFS REFERRAL NEEDED?NO CLERGY REFERRAL NEEDED?NO PUBLIC HEALTH REFERRAL NEEDED?NO WAS THE PROVIDER NOTIFIED OF ANY PERTINENT INFO?YES HAS THE PATIENT BEEN EDUCATED REGARDING HIS/HER PLAN OF CARE?YES HAS THE PATIENT BEEN EDUCATED REGARDING PAIN, THE RISK FOR PAIN, THE IMPORTANCE OF EFFECTIVE PAIN MANAGEMENT, AND THE PAIN ASSESSMENT PROCESS?YES PATIENT: DENIES ABUSE OR MISUSE OF ANY MEDICATION. ADVANCE DIRECTIVES HEALTH CARE PROXY?NO POWER OF PICK REMOVER?NO SOCIAL HISTORY PATIENTDENIES ABUSE OR MISSUSED OF ANY MEDICATION REVIEW OF SYSTEMS REVIEWED BY: PROVIDER: . CONSTITUTIONAL: ANY CHANGE IN YOUR MEDICAL CONDITION? NO . CHILLS NO . FEVER NO . INFECTION: DO YOU HAVE NEW INFECTIONS? NO . DO YOU HAVE HISTORY OF MRSA? NO . MUSCULOSKELETAL: ANY NEW PATTERNS OF PAIN OR NUMBNESS? NO . GASTROENTEROLOGY: ANY NEW CHANGE IN BOWEL CONTROL? NO . GENITOURINARY: ANY NEW CHANGE IN BLADDER CONTROL? NO . IS THERE A CHANCE YOU COULD BE ? NO . HEMATOLOGY/LYMPH: DO YOU TAKE ANY BLOOD THINNERS? (FOR EXAMPLE- COUMADIN, PLAVIX, AGGRENOX, PLATEL, PRADAXA, OR XARELTO) NO . WHEN WAS YOUR LAST DOSE? DATE: TIME: . NEUROLOGY: HAVE YOU FALLEN IN THE PAST 6 MONTHS? NO . ANY NEW EXTREMITY NUMBNESS OR WEAKNESS? NO . CARDIOLOGY: DO YOU HAVE A PACEMAKER OR DEFIBRILLATOR? NO . RESPIRATORY: HAVE YOU BEEN SICK IN THE PAST WEEK? NO . FEVER NO . FLU LIKE SYMPTOMS? NO . COUGH NO . INTEGUMENTARY: DO YOU HAVE ANY RASHES OR OPEN SORES? NO . ALLERGIC/IMMUNO: ARE YOU ALLERGIC TO SHELLFISH OR IV DYE? NO . ANY NEW ALLERGIES? NO . PSYCHIATRIC: DO YOU HAVE THOUGHTS OF HURTING YOURSELF OR SOMEONE ELSE? NO . ARE YOU ABUSED, NEGLECTED, OR IN AN UNSAFE ENVIRONMENT? NO . ENDOCRINOLOGY: ARE YOU DIABETIC? NO . OTHER: DO YOU NEED ANY PRESCRIPTIONS? NO . IF YES, PLEASE LIST: ____ . ANY NEW PROBLEMS WITH YOUR MEDICATIONS? NO . WHEN DID YOU LAST EAT? 04-03-17 PM . WHEN DID YOU LAST DRINK? 04-04-17 0630 . WHAT DID YOU LAST DRINK? WATER . NAME OF PERSON DRIVING YOU HOME? ROSELINE BELL . DO YOU HAVE ANY OTHER QUESTIONS OR CONCERNS NO . VITAL SIGNS WT 227.0 LBS, HT 70 IN, BMI 32.57 INDEX, BP 142/62 MM HG, HR 85 /MIN, RR 16 /MIN, TEMP 96.5 F, OXYGEN SAT % 96%, SAFE IN ENV? (Y/N) YES, NA INITIALS TL 1031, REVIEWED BY: VD. ASSESSMENTS SPONDYLOSIS OF LUMBAR REGION WITHOUT MYELOPATHY OR RADICULOPATHY - M47.816 (PRIMARY) SPONDYLOSIS OF LUMBOSACRAL REGION WITHOUT MYELOPATHY OR RADICULOPATHY - M47.817 PROCEDURES PN LUMBAR FACET BLOCK THERAPEUTIC PRE PROCEDURE DIAGNOSIS LUMBAR SPONDYLOSIS, LUMBOSACRAL SPONDYLOSIS POST PROCEDURE DIAGNOSIS LUMBAR SPONDYLOSIS, LUMBOSACRAL SPONDYLOSIS PROCEDURE BILATERAL L4-L5 AND BILATERAL L5-S1 LUMBAR FACET THERAPEUTIC BLOCK SURGEON DR. BETSY CHASE DIGITAL MARKETING LEAD NONE ANESTHESIA LOCAL PRE PROCEDURE NOTE THE PATIENT HAS A HISTORY OF CHRONIC LOW BACK PAIN. I EVALUATE THE PATIENT AND REVIEWED THE CHART. I WENT OVER THE RISKS, ALTERNATIVES, AND BENEFITS ASSOCIATED WITH THIS PROCEDURE. THE PATIENT WOULD LIKE TO PROCEED AND GIVE CONSENT TO PERFORMED THE PROCEDURE. THE PATIENT DENIES UNEXPLAINABLE WEIGHT LOSS, FEVER, CHILLS, OR NEW CHANGES IN URINARY OR BOWEL CONTROL DESCRIPTION OF PROCEDURE THE PATIENT WAS BROUGHT TO THE PROCEDURE ROOM AND PLACED IN THE PRONE POSITION. THE LUMBOSACRAL AREA WAS CLEANED WITH CHLORAPREP SOLUTION AND DRAPED ASEPTICALLY. THE PROCEDURE WAS DONE UNDER STERILE CONDITIONS. I CHECKED LATERALITY AND THE LEVEL WHERE THE PROCEDURE WAS GOING TO BE PERFORMED WITH THE PATIENT AND THE SUPPORTING STAFF AT THE MOMENT OF THE TIME OUT IN THE PROCEDURE ROOM. UNDER FLUOROSCOPIC GUIDANCE, THE TARGET POINT WAS SELECTED AT THE RIGHT AND LEFT L4-L5 AND RIGHT AND LEFT L5-S1 FACET JOINT. TARGET POINT WAS SELECTED AFTER LATERAL ROTATION AND TILT OF THE MAGNIFIER OF THE C-ARM. LIDOCAINE 0.5% WAS USED TO NUMB THE SKIN AND THE SUBCUTANEOUS TISSUE BELOW IT. SPINAL NEEDLES, 22-GAUGE, WERE ADVANCED UNDER FLUOROSCOPIC GUIDANCE AND FOLLOWING PATIENT FEEDBACK UNTIL THE TARGETS WERE TOUCHED. THE POSITION OF THE NEEDLES WAS VERIFIED WITH AP AND LATERAL VIEWS. AFTER PROPER POSITION OF THE NEEDLES WAS ACHIEVED, ISOVUE-M DYE 30% 0.1 ML WAS INJECTED SHOWING ADEQUATE SPREAD OF THE DYE. THEN A SOLUTION OF 1.9 ML OF BUPIVACAINE 0.125% OF KENALOG 10 MG WAS INJECTED AT EACH SITE. THERE WAS NO EVIDENCE OF BLOOD, PARESTHESIA OR CEREBROSPINAL FLUID DURING THE PROCEDURE. THE PATIENT WAS SENT TO THE RECOVERY ROOM. THE PATIENT WAS MOVING THE EXTREMITIES AND DOING WELL. THERE WAS NO COMPLICATION DURING THE PROCEDURE. FLUOROSCOPY TIME WAS 50 SECONDS POST PROCEDURE NOTE THE PATIENT WILL BE SEEN IN A FOLLOW UP IN THE NEXT FEW WEEKS. INSTRUCTIONS WERE GIVEN, QUESTIONS WERE ANSWERED, AND THE PATIENT EXPRESSED UNDERSTANDING AND AGREES WITH THE PLAN. I, MAMADOU RICHARDSON, DOCUMENTED THE ABOVE INFORMATION ACTING A SCRIBE FOR DR. CHASE. I HAVE REVIEWED THE ABOVE DOCUMENT, WRITTEN BY MAMADOU COLLINS AND I VERIFY THAT IT IS ACCURATE DIAGNOSTIC IMAGING [facility] FACET BLOCK (PAIN)[id number] PROCEDURE CODES 96023 INJ PARAVERT F JNT L/S 1 LEV, MODIFIERS: 50 11158 INJ PARAVERT F JNT L/S 2 LEV, MODIFIERS: 50 [id number] RADXPS IN END [id number] PXD DISPOSITION & COMMUNICATION FOLLOW UP 2 WEEKS ELECTRONICALLY SIGNED BY BETSY CHASE MD ON 04/09/2017 AT 11:13 AM EST DISCLAIMER : THIS IS A VISIT SUMMARY EXTRACTED FROM THE [employer] CHART. IT IS NOT A COPY OF THE [employer] PROGRESS NOTE. MTDD
== END ==
LOC: M PAIN 10:30
PROVIDERS: ATTEND Anesthesiology
DX: G89.29 Other chronic pain (principal); M47.816 Spondylosis without myelopathy or radiculopathy, lumbar region; M47.817 Spondylosis without myelopathy or radiculopathy, lumbosacral region; F17.210 Nicotine dependence, cigarettes, uncomplicated; Z91.040 Latex allergy status; Z79.891 Long term (current) use of opiate analgesic; Z79.899 Other long term (current) drug therapy
CPT/HCPCS: 64493; 64494; J3301; Q9967

== ENCOUNTER → 2017-04-13 | Outpatient (CLI) | payer OTHER ==
[~2017-04-13] MED LIST changes: -BUPIVACAINE HCL 0.25% 30 ML VIAL As Ordered ONE; -ISOVUE-M 300 61% 15ML VIAL (Q9967) As Ordered ONE; -LIDOCAINE 1% SDV INJ 30 ML VIAL As Ordered ONE; -TRIAMCINOLONE ACETONIDE SUSP 40 MG/ML VIAL (J3301) As Ordered ONE; -diazePAM 5 MG TAB As Ordered ONE; -oxyCODONE 5MG TAB As Ordered ONE
--- NOTE | 2017-05-08 02:18 | ECWPNPC ---
PATIENT NAME: COLTON BELL : 1960 GENDER: FEMALE VISIT DATE: 04/13/2017 DISCHARGE DATE: 04/13/17 1536 VISIT LOCKED DATE TIME: PHYSICIAN: MARIA ESTHER CANO RESOURCE: MARIA ESTHER CANO REASON FOR APPOINTMENT 1. POST FACET HISTORY OF PRESENT ILLNESS HISTORY OF PRESENT ILLNESS: HERE FOR POST PROCEDURE F/U.HAD BILATERAL LUMBAR THERAPEUTIC FACET BLOCK WITHOUT IMPROVEMENT.THIS IS A WORK RELATED INJURY OF HER NECK AND BACK DOI 11-22-08.RATING PAIN VAS 8/10.CURRENT CHRONIC PAIN MEDICATION FOR WORK INJURY: OXYCODONE 5MG Q6H PRN FOR SEVERE PAIN AND GABAPENTIN 300MG TWO IN AM,1 AT MIDDAY,AND 2 AT HS AND COLACE 100MG BID.REPORTS SOME IMPROVEMENT IN PAIN WITHOUT SIDE EFFECTS. PAIN THE PATIENT DESCRIBES THE PAIN... FALL RISK SCREENING: SCREENING :NO FALLS IN THE PAST YEAR CURRENT MEDICATIONS TAKING ADVIL 200 MG TABLET 1 TABLET NEEDED ORALLY EVERY 6 HRS, NOTES: NONE RECENTLY TAKING VITAMIN D 2000 UNIT TABLET 1 TABLET ORALLY BID, NOTES: 0630 TAKING FLONASE 50 MCG/DOSE INHALER 1 SPRAY IN EACH NOSTRIL NASALLY ONCE A DAY, NOTES: 0630 TAKING GABAPENTIN 300 MG CAPSULE DIRECTED ORALLY 2 AM,1 12N,2 PM, NOTES: 0630 TAKING COLACE 100 MG CAPSULE 1 CAPSULE NEEDED ORALLY BID, NOTES: 0630 TAKING OXYCODONE HCL 5 MG TABLET 1-2 ORALLY EVERY 6 HRS PRN MDD4, NOTES: 0630 MEDICATION LIST REVIEWED AND RECONCILED WITH THE PATIENT PAST MEDICAL HISTORY CHRONIC LOW BACK PAIN ALLERGIES LATEX (FOR ALLERGY USE ONLY): RASH: ALLERGY VALIUM: NAUSEA/VOMITING: ALLERGY SOCIAL HISTORY GENERAL: TOBACCO USE ARE YOU A:CURRENT SMOKER ARE YOU INTERESTED IN QUITTING?NOT READY TO QUIT COUNSELED THE PATIENT ON SMOKING EFFECTS, EDUCATION [id number]/2017 PATIENT COUNSELED ON THE DANGERS OF TOBACCO USE AND URGED TO QUIT:04/13/2017 LEARNING BARRIERS / SPECIAL NEEDS ABILITY TO UNDERSTAND VERBAL INSTRUCTIONS GOOD, ABILITY TO UNDERSTAND WRITTEN INSTRUCTIONS GOOD, KNOWLEDGE OF EDUCATIONAL NEEDS/TREATMENT PLAN GOOD, MU-ISM? NO, LEARNING PREFERENCE NO PREFERENCE, ORIENTED TO PLAN OF CARE: PATIENT, SIGNIFICANT OTHER, PAIN MANAGEMENT PATIENT, SIGNIFICANT OTHER. PAIN CLINIC PFS, CLERGY, PUBLIC HEALTH REFERRALS PFS REFERRAL NEEDED?NO CLERGY REFERRAL NEEDED?NO PUBLIC HEALTH REFERRAL NEEDED?NO WAS THE PROVIDER NOTIFIED OF ANY PERTINENT INFO?YES HAS THE PATIENT BEEN EDUCATED REGARDING HIS/HER PLAN OF CARE?YES HAS THE PATIENT BEEN EDUCATED REGARDING PAIN, THE RISK FOR PAIN, THE IMPORTANCE OF EFFECTIVE PAIN MANAGEMENT, AND THE PAIN ASSESSMENT PROCESS?YES PATIENT: DENIES ABUSE OR MISUSE OF ANY MEDICATION. ADVANCE DIRECTIVES HEALTH CARE PROXY?NO POWER OF REAL ESTATE COORDINATOR?NO SOCIAL HISTORY PATIENTDENIES ABUSE OR MISSUSED OF ANY MEDICATION REVIEW OF SYSTEMS REVIEWED BY: PROVIDER: MARIA ESTHER CORRAL . CONSTITUTIONAL: RECENT ILLNESS DENIES . ANY CHANGE IN YOUR MEDICAL CONDITION? NO . CHILLS NO . FEVER NO, DENIES . WEIGHT LOSS DENIES . INFECTION: DO YOU HAVE NEW INFECTIONS? NO . DO YOU HAVE HISTORY OF MRSA? NO . MUSCULOSKELETAL: ANY NEW PATTERNS OF PAIN OR NUMBNESS? NO . JOINT PAIN DENIES . JOINT STIFFNESS DENIES . GASTROENTEROLOGY: BOWEL INCONTINENCE DENIES . ANY NEW CHANGE IN BOWEL CONTROL? NO . BLOOD IN STOOL DENIES . GENITOURINARY: ANY NEW CHANGE IN BLADDER CONTROL? NO . IS THERE A CHANCE YOU COULD BE ? NO . HEMATOLOGY/LYMPH: DENIES . BLEEDING DISORDER DENIES . DO YOU TAKE ANY BLOOD THINNERS? (FOR EXAMPLE- COUMADIN, PLAVIX, AGGRENOX, PLATEL, PRADAXA, OR XARELTO) NO . WHEN WAS YOUR LAST DOSE? DATE: TIME: . NEUROLOGY: HAVE YOU FALLEN IN THE PAST 6 MONTHS? NO . ANY NEW EXTREMITY NUMBNESS OR WEAKNESS? NO . HEADACHE DENIES . SEIZURES DENIES . CARDIOLOGY: DO YOU HAVE A PACEMAKER OR DEFIBRILLATOR? NO . CHEST PAIN DENIES . SHORTNESS OF BREATH DENIES . RESPIRATORY: HAVE YOU BEEN SICK IN THE PAST WEEK? NO . FEVER NO . FLU LIKE SYMPTOMS? NO . COUGH NO, DENIES . SHORTNESS OF BREATH DENIES . INTEGUMENTARY: DO YOU HAVE ANY RASHES OR OPEN SORES? NO . ALLERGIC/IMMUNO: ARE YOU ALLERGIC TO SHELLFISH OR IV DYE? NO . ANY NEW ALLERGIES? NO . PSYCHIATRIC: DO YOU HAVE THOUGHTS OF HURTING YOURSELF OR SOMEONE ELSE? NO . ARE YOU ABUSED, NEGLECTED, OR IN AN UNSAFE ENVIRONMENT? NO . ENDOCRINOLOGY: THYROID DISEASE DENIES . ARE YOU DIABETIC? NO . DIABETES DENIES . OTHER: DO YOU NEED ANY PRESCRIPTIONS? NO . IF YES, PLEASE LIST: ____ . ANY NEW PROBLEMS WITH YOUR MEDICATIONS? NO . WHEN DID YOU LAST EAT? ____ . WHEN DID YOU LAST DRINK? ____ . WHAT DID YOU LAST DRINK? ____ . NAME OF PERSON DRIVING YOU HOME? ____ . DO YOU HAVE ANY OTHER QUESTIONS OR CONCERNS NO . HEENT: CHANGE IN VISION DENIES . LOSS OF HEARING DENIES . TROUBLE SWALLOWING DENIES . PSYCHOLOGY: ANXIETY DENIES . DEPRESSION DENIES . UROLOGY: URINARY INCONTINENCE DENIES . BLOOD IN URINE DENIES . VITAL SIGNS WT 223.6 LBS, HT 70 IN, BMI 32.08 INDEX, BP 135/75 MM HG, HR 79 /MIN, RR 18 /MIN, TEMP 97.5 F, OXYGEN SAT % 97%, SAFE IN ENV? (Y/N) YES, NA INITIALS TL 1440, REVIEWED BY: ISREAL. EXAMINATION GENERAL EXAMINATION: HEENT:HEAD:, NORMOCEPHALIC, EYES:, EYES NORMAL, NOSE:, NOSE CLEAR, THROAT: NORMAL. LUNGS:LUNG SOUNDS ARE CLEAR. HEART:HEART RATE REGULAR. ABDOMEN:SOFT AND NOT TENDER, NON-DISTENDED. MUSCULOSKELETAL:*, MUSCLE STRENGTH TESTING 2/5 BILATERAL LOWER EXT., PALPATION: POSITIVE FOR PAIN OVER L/S SPINE. POSITIVE FOR PAIN OVER L/S PARASPINALS.WELL HEALED SURGICAL SCAR OVER L/S SPINE.SPECIFIC POIN TENDERNESS OVER BILATERAL L4/5-L5/S1 FACET JOINTS BILATERAL WITH FACET LOADING. LUMBAR SACRAL SPINEMUSCLE STRENGTH TESTING 5/5 BILATERAL, PALPATION: NEGATIVE FOR PAIN OVER L/S SPINE. NEGATIVE FOR PAIN OVER L/S PARSPINALS. THORACIC SPINENEGATIVE FOR PAIN WITH PALPATION OF THORACIC SPINE. NEGATIVE FOR PAIN WITH PALPATION OF THORACIC PARASPINAL. CERVICALNEGATIVE FOR PAIN WITH PALPATION OF CERVICAL SPINE. NEGATIVE FOR PAIN WITH PALPATION OF CERVICAL PARASPINALS. NEGATIVE FOR PAIN WITH PALPATION OF TRAPEZIUS BILAT. SKIN:NORMAL, NO RASH. NEUROLOGIC EXAM:ALERT AND ORIENTED X 3, DTRS 1-2+ IN ALL 4 EXTREMITIES, DENIES UPPER EXTREMETIES SENSORY LOSS, DENIES LOWER EXTREMETIES SENSORY LOSS. DIAGNOSTIC: . ASSESSMENTS POST LAMINECTOMY SYNDROME - M96.1 (PRIMARY) CHRONIC PRESCRIPTION OPIATE USE - Z79.891 TREATMENT POST LAMINECTOMY SYNDROME CONTINUE GABAPENTIN CAPSULE, 300 MG, DIRECTED, ORALLY, 2 AM,1 12N,2 PM, NOTES: 0630 CONTINUE COLACE CAPSULE, 100 MG, 1 CAPSULE NEEDED, ORALLY, BID, NOTES: 0630 REFILL OXYCODONE HCL TABLET, 5 MG, 1-2, ORALLY, EVERY 6 HRS PRN MDD4, 10 DAY(S), 40, REFILLS 0, NOTES: 0630 OTHERS CLINICAL NOTES: ISTOP REGISTRY REVIEWED AND DEMONSTRATES COMPLIANCE. BRINGS IN MEDICATIONS WHICH IS APPROPRIATE FOR WHAT WAS DISPENSED. RECENT URINE TOXICOLOGY REVIEWED. NO UNAUTHORIZED MEDICATIONS. NO ILLICIT SUBSTANCES AND PRESCRIBED MEDICATIONS WERE PRESENT. PROCEDURES PN WORKMANS' COMP OPINION IN YOUR OPINION, WAS THE INCIDENT THAT THE PATIENT DESCRIBED THE COMPETENT MEDICAL CAUSE OF THIS INJURY/ILLNESS? YES ARE THE PATIENT'S COMPLAINTS CONSISTENT WITH HIS/HER HISTORY OF THE INJURY/ILLNESS? YES IS THE PATIENT'S HISTORY OF THE INJURY/ILLNESS CONSISTENT WITH YOUR OBJECTIVE FINDING? YES WHAT IS THE PERCENTAGE OF TEMPORARY IMPAIRMENT? MODERATE TO MARKED = 66.7% IS THE PATIENT WORKING? NO DOCTOR ON SITE: BETSY QUESADA MD PROCEDURE CODES FA211 ESTABILISHED PATIENT [facility] CHARGE DISPOSITION & COMMUNICATION FOLLOW UP PT WILL CALL ELECTRONICALLY SIGNED BY ELLIS FARFAN ON 05/07/2017 AT 01:42 PM EST DISCLAIMER : THIS IS A VISIT SUMMARY EXTRACTED FROM THE [employer] [facility] [employer] CHART. IT IS NOT A COPY OF THE [employer] PROGRESS NOTE. RONAL
== END ==
LOC: M PAIN 15:00
PROVIDERS: ATTEND Nurse Practitioner Family
DX: M96.1 Postlaminectomy syndrome, not elsewhere classified (principal); G89.29 Other chronic pain; F17.210 Nicotine dependence, cigarettes, uncomplicated; Z79.891 Long term (current) use of opiate analgesic; Z79.899 Other long term (current) drug therapy; Z91.040 Latex allergy status; Z88.8 Allergy status to other drugs, medicaments and biological substances

== ENCOUNTER → 2017-11-16 | Outpatient (CLI) | payer OTHER | LOC: M PAIN 10:15 | DX: M96.1 Postlaminectomy syndrome, not elsewhere classified (principal); G89.29 Other chronic pain; F17.200 Nicotine dependence, unspecified, uncomplicated; Z79.891 Long term (current) use of opiate analgesic; Z79.899 Other long term (current) drug therapy; Z88.5 Allergy status to narcotic agent; Z91.040 Latex allergy status | CPT/HCPCS: G0463 ==

== ENCOUNTER → 2018-01-04 | Outpatient (CLI) | payer OTHER | LOC: M PAIN 10:00 | DX: M53.3 Sacrococcygeal disorders, not elsewhere classified (principal); M96.1 Postlaminectomy syndrome, not elsewhere classified; M65.832 Other synovitis and tenosynovitis, left forearm; F17.210 Nicotine dependence, cigarettes, uncomplicated; Z79.891 Long term (current) use of opiate analgesic; Z79.899 Other long term (current) drug therapy; Z91.040 Latex allergy status; Z88.5 Allergy status to narcotic agent | CPT/HCPCS: G0463 ==

== ENCOUNTER → 2018-02-27 | Outpatient (CLI) | payer OTHER | LOC: M PAIN 10:15 | DX: M53.3 Sacrococcygeal disorders, not elsewhere classified (principal); M96.1 Postlaminectomy syndrome, not elsewhere classified; F17.210 Nicotine dependence, cigarettes, uncomplicated; Z79.891 Long term (current) use of opiate analgesic; Z79.899 Other long term (current) drug therapy; Z88.5 Allergy status to narcotic agent; Z91.040 Latex allergy status | CPT/HCPCS: G0463 ==

== ENCOUNTER → 2018-04-04 | Outpatient (CLI) | payer OTHER | LOC: M PAIN 10:15 | DX: M96.1 Postlaminectomy syndrome, not elsewhere classified (principal); M53.3 Sacrococcygeal disorders, not elsewhere classified; Z72.0 Tobacco use; Z79.891 Long term (current) use of opiate analgesic; Z79.899 Other long term (current) drug therapy; Z88.5 Allergy status to narcotic agent; Z91.040 Latex allergy status | CPT/HCPCS: G0463 ==

== ENCOUNTER → 2018-10-02 | Outpatient (CLI) | payer OTHER ==
[~2018-10-02] MED LIST changes: +BUPIVACAINE HCL 0.25% 30 ML VIAL ONE; +CYMB1CAP4 PO; -DULO20CA PO; +FENT12DI12 TD; -FENT12PA TD; +ISOVUE-M 300 61% 15ML VIAL (Q9967) ONE; +LIDOCAINE 1% SDV INJ 30 ML VIAL ONE; +TRIAMCINOLONE ACETONIDE SUSP 40 MG/ML VIAL (J3301) ONE; -ZOFR20TA PO; +ZOFR4TAB16 PO; +diphenhydrAMINE 25 MG CAP ONE; +oxyCODONE 5MG TAB ONE
--- NOTE | 2018-10-02 14:53 | REP ---
Partial lumbar spine series: Single view . History: Injection procedure for pain. 25 seconds of fluoroscopy time is reported. Findings: A single fluoroscopically obtained last image hold procedural spot radiograph of the lumbar spine documents needle position and contrast injection associated with injection procedure. Electronically Signed by Balta Mast MD 10/02/2018 02:44 P
--- NOTE | 2018-10-20 00:27 | ECWPNPC ---
PATIENT NAME: COLTON BELL : 1960 GENDER: FEMALE VISIT DATE: 10/02/2018 DISCHARGE DATE: 10/02/18 1048 VISIT LOCKED DATE TIME: PHYSICIAN: BETSY CHASE MD RESOURCE: BETSY CHASE MD REASON FOR APPOINTMENT 1. THERAPEUTIC LUMBAR FACET BLOCK HISTORY OF PRESENT ILLNESS HISTORY OF PRESENT ILLNESS: PAIN THE PATIENT DESCRIBES THE PAIN... 58 YEAR OLD FEMALE PATIENT WITH A HISTORY OF CHRONIC LOW BACK PAIN. THE PATIENT DESCRIBES THE PAIN ACHING, STABBING, SHOOTING, AND CONTINUOUS WITH A PAIN SCORE OF 6-10/10 DEPENDING ON PHYSICAL ACTIVITY. 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 THE PATIENT STATES THAT SHE HAD SURGERY ON HER LOW BACK IN SEPTEMBER 2009, BUT THE PAIN PERSISTED. THE PATIENT SAYS THE PAIN IS LOCATED MAINLY ON HER LEFT SIDE AND HAS INCREASED OVER THE LAST FEW MONTHS. THE PATIENT HAS TRIED PHYSICAL THERAPY IN THE PAST, BUT SAYS IT DID NOT HELP. THE PATIENT SAYS SHE HAS DIFFICULTY DOING DAILY ACTIVITIES SUCH COOKING, CLEANING, AND GROCERY SHOPPING DUE TO THIS PAIN. PATIENT DENIES UNEXPLAINABLE WEIGHT LOSS, FEVER, CHILLS, NEW CHANGES ON HER URINARY OR BOWEL CONTROL. FALL RISK SCREENING: SCREENING :NO FALLS REPORTED IN THE LAST YEAR CURRENT MEDICATIONS TAKING ADVIL 200 MG TABLET 1 TABLET NEEDED ORALLY EVERY 6 HRS, NOTES: 2 WEEKS AGO TAKING VITAMIN D 2000 UNIT TABLET 1 TABLET ORALLY BID, NOTES: 0600 TAKING FLONASE 50 MCG/DOSE INHALER 1 SPRAY IN EACH NOSTRIL NASALLY ONCE A DAY, NOTES: 0600 TAKING ICY HOT 16 % LIQUID 1 APPLICATION TO AFFECTED AREA NEEDED EXTERNALLY ONCE A DAY, NOTES: NONE RECENTLY TAKING VITAMIN B-12 1000 MCG TABLET 1 TABLET ORALLY ONCE A DAY, NOTES: 0600 TAKING OMEPRAZOLE 40 MG CAPSULE DELAYED RELEASE 1 CAPSULE ORALLY ONCE A DAY, NOTES: 0600 TAKING OXYCODONE HCL 5 MG TABLET 1-2 ORALLY EVERY 6 HRS PRN MDD4, NOTES: 0600 DISCONTINUED BELBUCA 75 MCG FILM 1 FILM TO THE GUM BUCALLY ONCE A DAY, NOTES: W/C DID NOT APPROVE DISCONTINUED NAPROXEN 250 MG TABLET 1 TABLET WITH FOOD OR MILK ORALLY TWICE A DAY, NOTES: BOTHERS HER STOMACH DISCONTINUED BELBUCA 75 MCG FILM 1 FILM TO THE GUM BUCALLY ONCE A DAY, NOTES: COMP DENIED DISCONTINUED COLACE 100 MG CAPSULE 1 CAPSULE NEEDED ORALLY BID DISCONTINUED GABAPENTIN 300 MG CAPSULE DIRECTED ORALLY 2 AM,1 12N,2 PM MDD=5 MEDICATION LIST REVIEWED AND RECONCILED WITH THE PATIENT PAST MEDICAL HISTORY CHRONIC LOW BACK PAIN TENDONITIS LEFT ELBOW ALLERGIES LATEX (FOR ALLERGY USE ONLY): RASH - ALLERGY VALIUM: NAUSEA/VOMITING - ALLERGY SURGICAL HISTORY HYSTERECTOMY BACK SURGERY LEFT CATARACT FAMILY HISTORY FATHER: 57 YRS, DIAGNOSED WITH CANCER, OTHER MOTHER: ALIVE, DIABETES 1 BROTHER(S) , 2 SISTER(S) - HEALTHY. 1 SON(S) , 4 DAUGHTER(S) - HEALTHY. BROTHER DIABETICSISTER DIABETESDAUGHTER HEART PROBLEMS. SOCIAL HISTORY GENERAL: TOBACCO USE ARE YOU A:CURRENT SMOKER ARE YOU INTERESTED IN QUITTING?NOT READY TO QUIT COUNSELED THE PATIENT ON SMOKING EFFECTS, EDUCATION [id number]/08/2019 PATIENT COUNSELED ON THE DANGERS OF TOBACCO USE AND URGED TO QUIT:10/02/2018 OTHERS AT HOME: SPOUSE, CHILD. DIET: REGULAR. LANGUAGE LANGUAGES SPOKEN:DANISH RECREATIONAL DRUG USE DRUG USE?NO EXERCISE: WALKS. LEARNING BARRIERS / SPECIAL NEEDS BARRIERS TO LEARNING?NO HEARING IMPAIRED?YES HEARING AIDS BILATERALLY VISION IMPAIRED?YES :CORRECTIVE LENSES COGNITIVELY IMPAIRED?NO READINESS TO LEARN?YES PAIN CLINIC PFS, CLERGY, PUBLIC HEALTH REFERRALS PFS REFERRAL NEEDED?NO CLERGY REFERRAL NEEDED?NO PUBLIC HEALTH REFERRAL NEEDED?NO WAS THE PROVIDER NOTIFIED OF ANY PERTINENT INFO?YES HAS THE PATIENT BEEN EDUCATED REGARDING HIS/HER PLAN OF CARE?YES HAS THE PATIENT BEEN EDUCATED REGARDING PAIN, THE RISK FOR PAIN, THE IMPORTANCE OF EFFECTIVE PAIN MANAGEMENT, AND THE PAIN ASSESSMENT PROCESS?YES LATEX QUESTIONNAIRE LATEX ALLERGY : HAVE YOU EVER DEVELOPED ANY TYPE OF REACTION AFTER HANDLING LATEX PRODUCTS SUCH RUBBER GLOVES, CONDOMS, DIAPHRAGMS, BALLOONS, SOCKS, OR UNDERWEAR?YES - PLEASE INDICATE :RUBBER GLOVES LATEX ALLERGY : HAVE YOU EVER DEVELOPED ANY TYPE OF REACTION DURING OR AFTER DENTAL APPOINTMENT, VAGINAL/RECTAL EXAMINATION, SURGICAL PROCEDURE, OR ANY OTHER EXPOSURE?NO LATEX RISK : HAVE YOU EVER HAD ANY DIFFICULTY BREATHING OR HIVES AFTER EATING OR HANDLING ANY FRUITS, OR VEGETABLES; SUCH KIWI, BANANAS, STONE FRUITS, OR CHESTNUTSNO LATEX RISK : DO YOU HAVE A PREVIOUS PERSONAL HISTORY OF MORE THAN NINE SURGERIES, SPINA BIFIDA, OR REPEATED CATHERTIZATIONS? NO LATEX RISK : ARE YOU FREQUENTLY EXPOSED TO LATEX PRODUCTS IN YOUR OCCUPATION?NO DATE ASKED : 10/02/2018 CAFFEINE CAFFEINE USE?YES ADVANCE DIRECTIVE ADVANCE DIRECTIVE DISCUSSED WITH PATIENT:YES PT HAS NO ADVANCED DIRECTIVES, DECLINES INFORMATION AT THIS TIME JUDAISM [id number] [employer]ATH[employer] MARITAL STATUS: . OCCUPATION: DISABLED. REVIEWED WITH PT 11/16/17 1048 BVREVIEWED WITH PT 01/04/18 1015 LASREVIEWED WITH PT 02/27/18 1020 BVREVIEWED WITH PATIENT 04/04/18 1111 JS. HOSPITALIZATION/MAJOR DIAGNOSTIC PROCEDURE SURGERY RELATED REVIEW OF SYSTEMS REVIEWED BY: PROVIDER: BETSY CHASE MD . CONSTITUTIONAL: ANY CHANGE IN YOUR MEDICAL CONDITION? NO . CHILLS NO . FEVER NO . INFECTION: DO YOU HAVE NEW INFECTIONS? NO . DO YOU HAVE HISTORY OF MRSA? NO . MUSCULOSKELETAL: ANY NEW PATTERNS OF PAIN OR NUMBNESS? NO . GASTROENTEROLOGY: ANY NEW CHANGE IN BOWEL CONTROL? NO . GENITOURINARY: ANY NEW CHANGE IN BLADDER CONTROL? NO . IS THERE A CHANCE YOU COULD BE ? NO . HEMATOLOGY/LYMPH: DO YOU TAKE ANY BLOOD THINNERS? (FOR EXAMPLE- COUMADIN, PLAVIX, AGGRENOX, PLATEL, PRADAXA, OR XARELTO) NO . WHEN WAS YOUR LAST DOSE? DATE: TIME: . NEUROLOGY: HAVE YOU FALLEN IN THE PAST 12 MONTHS? NO . ANY NEW EXTREMITY NUMBNESS OR WEAKNESS? NO . CARDIOLOGY: DO YOU HAVE A PACEMAKER OR DEFIBRILLATOR? NO . RESPIRATORY: HAVE YOU BEEN SICK IN THE PAST WEEK? NO . FEVER NO . FLU LIKE SYMPTOMS? NO . COUGH NO . INTEGUMENTARY: DO YOU HAVE ANY RASHES OR OPEN SORES? NO . ALLERGIC/IMMUNO: ARE YOU ALLERGIC TO IV DYE? NO . ANY NEW ALLERGIES? NO . PSYCHIATRIC: DO YOU HAVE THOUGHTS OF HURTING YOURSELF OR SOMEONE ELSE? NO . ARE YOU ABUSED, NEGLECTED, OR IN AN UNSAFE ENVIRONMENT? NO . ENDOCRINOLOGY: ARE YOU DIABETIC? NO . OTHER: DO YOU NEED ANY PRESCRIPTIONS? NO . IF YES, PLEASE LIST: ____ . ANY NEW PROBLEMS WITH YOUR MEDICATIONS? NO . WHEN DID YOU LAST EAT? ____10/01/18 . WHEN DID YOU LAST DRINK? ____06 . WHAT DID YOU LAST DRINK? ____WATER . NAME OF PERSON DRIVING YOU HOME? ____NIGEL BELL . DO YOU HAVE ANY OTHER QUESTIONS OR CONCERNS NO . VITAL SIGNS WT 223 LBS, HT 70 IN, BMI 31.99 INDEX, BP 132/77 MM HG, HR 83 /MIN, RR 16 /MIN, TEMP 97.4 F, OXYGEN SAT % 98%, SAFE IN ENV? (Y/N) YES, NA INITIALS SC 08:50, REVIEWED BY: VD. EXAMINATION GENERAL EXAMINATION: PATIENT IS ALERT O X 3 AND COOPERATIVE. PAIN INCREASES OVER THE LUMBAR FACET JOINTS WITH EXTENSION AND LATERAL ROTATION OF THE BACK. MRI OF THE LUMBAR SPINE DONE ON 11/23/2014 SHOWS POST LAMINECTOMY CHANGES AND FACET ARTHROPATHY CHANGES AT MULTIPLE LEVELS. 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 BELL'S PAIN MANAGEMENT CASE. DUE TO THE LUMBAR SPONDYLOSIS AND ACUTE EXACERBATION OF HER CONDITION, I WOULD LIKE TO MOVE FORWARD WITH A LEFT L4-L5, L5-S1 THERAPEUTIC LUMBAR FACET BLOCK. WE DISCUSSED THE BENEFITS, RISKS, AND ALTERNATIVES OF THE INJECTION AND THE PATIENT WOULD LIKE TO PROCEED. THE PATIENT WILL FOLLOW UP IN 3 WEEKS. INSTRUCTIONS WERE GIVEN, QUESTIONS WERE ANSWERED, PATIENT REPORTS UNDERSTANDING AND AGREES WITH THE PLAN. I, JOSE RAUL MORAN, DOCUMENTED THE ABOVE INFORMATION ACTING A SCRIBE FOR DR. CHASE. I HAVE REVIEWED THE ABOVE DOCUMENT, WRITTEN BY JOSE RAUL BARRERAIBZuleima AND I VERIFY THAT IT IS ACCURATE. . PROCEDURES PN LUMBAR FACET BLOCK THERAPEUTIC PRE PROCEDURE DIAGNOSIS LUMBAR SPONDYLOSIS, LUMBOSACRAL SPONDYLOSIS POST PROCEDURE DIAGNOSIS LUMBAR SPONDYLOSIS, LUMBOSACRAL SPONDYLOSIS PROCEDURE LEFT L4-L5 AND LEFT L5-S1 LUMBAR FACET THERAPEUTIC BLOCK SURGEON DR. BETSY CHASE ASSISTANT BASEBALL COACH NONE ANESTHESIA LOCAL PRE PROCEDURE NOTE THE PATIENT HAS A HISTORY OF CHRONIC LOW BACK PAIN. I EVALUATE THE PATIENT AND REVIEWED THE CHART. I WENT OVER THE RISKS, ALTERNATIVES, AND BENEFITS ASSOCIATED WITH THIS PROCEDURE. THE PATIENT WOULD LIKE TO PROCEED AND GIVE CONSENT TO PERFORMED THE PROCEDURE. THE PATIENT DENIES UNEXPLAINABLE WEIGHT LOSS, FEVER, CHILLS, OR NEW CHANGES IN URINARY OR BOWEL CONTROL DESCRIPTION OF PROCEDURE THE PATIENT WAS BROUGHT TO THE PROCEDURE ROOM AND PLACED IN THE PRONE POSITION. THE LUMBOSACRAL AREA WAS CLEANED WITH CHLORAPREP SOLUTION AND DRAPED ASEPTICALLY. THE PROCEDURE WAS DONE UNDER STERILE CONDITIONS. I CHECKED LATERALITY AND THE LEVEL WHERE THE PROCEDURE WAS GOING TO BE PERFORMED WITH THE PATIENT AND THE SUPPORTING STAFF AT THE MOMENT OF THE TIME OUT IN THE PROCEDURE ROOM. UNDER FLUOROSCOPIC GUIDANCE, THE TARGET POINT WAS SELECTED AT THE LEFT L4-L5 AND LEFT L5-S1 FACET JOINT. TARGET POINT WAS SELECTED AFTER LATERAL ROTATION AND TILT OF THE MAGNIFIER OF THE C-ARM. LIDOCAINE 0.5% WAS USED TO NUMB THE SKIN AND THE SUBCUTANEOUS TISSUE BELOW IT. SPINAL NEEDLES, 22-GAUGE, WERE ADVANCED UNDER FLUOROSCOPIC GUIDANCE AND FOLLOWING PATIENT FEEDBACK UNTIL THE TARGETS WERE TOUCHED. THE POSITION OF THE NEEDLES WAS VERIFIED WITH AP AND LATERAL VIEWS. AFTER PROPER POSITION OF THE NEEDLES WAS ACHIEVED, ISOVUE-M DYE 30% 0.1 ML WAS INJECTED SHOWING ADEQUATE SPREAD OF THE DYE. THEN A SOLUTION OF 1.9 ML OF BUPIVACAINE 0.125% OF KENALOG 10 MG WAS INJECTED AT EACH SITE. THERE WAS NO EVIDENCE OF BLOOD, PARESTHESIA OR CEREBROSPINAL FLUID DURING THE PROCEDURE. THE PATIENT WAS SENT TO THE RECOVERY ROOM. THE PATIENT WAS MOVING THE EXTREMITIES AND DOING WELL. THERE WAS NO COMPLICATION DURING THE PROCEDURE. FLUOROSCOPY TIME WAS 25 SECONDS POST PROCEDURE NOTE THE PATIENT WILL BE SEEN IN A FOLLOW UP IN THE NEXT FEW WEEKS. INSTRUCTIONS WERE GIVEN, QUESTIONS WERE ANSWERED, AND THE PATIENT EXPRESSED UNDERSTANDING AND AGREES WITH THE PLAN. I, JOSE RAUL MORAN, DOCUMENTED THE ABOVE INFORMATION ACTING A SCRIBE FOR DR. CHASE. I HAVE REVIEWED THE ABOVE DOCUMENT, WRITTEN BY JOSE RAUL BARRERAIBZuleima AND I VERIFY THAT IT IS ACCURATE. PROCEDURE CODES 6045F RADXPS IN END [id number] PXD [id number] INJ PARAVERT F JNT L/S 1 LEV, [place]: [place] [id number] INJ PARAVERT F JNT L/S 2 LEV, MODIFIERS: LT DISPOSITION & COMMUNICATION FOLLOW UP 3 WEEKS ELECTRONICALLY SIGNED BY BETSY CHASE MD, MD ON 10/19/2018 AT 04:03 PM EDT DISCLAIMER : THIS IS A VISIT SUMMARY EXTRACTED FROM THE [employer] CHART. IT IS NOT A COPY OF THE [employer] PROGRESS NOTE. MTDD
== END ==
LOC: M PAIN 08:30
PROVIDERS: ATTEND Anesthesiology
DX: G89.29 Other chronic pain (principal); M47.816 Spondylosis without myelopathy or radiculopathy, lumbar region; M47.817 Spondylosis without myelopathy or radiculopathy, lumbosacral region; F17.210 Nicotine dependence, cigarettes, uncomplicated; Z79.899 Other long term (current) drug therapy; Z88.5 Allergy status to narcotic agent; Z91.030 Bee allergy status
CPT/HCPCS: 64493; 64494; J3301; Q9967

== ENCOUNTER → 2018-11-21 | Outpatient (CLI) | payer OTHER ==
[~2018-11-21] MED LIST changes: -BUPIVACAINE HCL 0.25% 30 ML VIAL ONE; -ISOVUE-M 300 61% 15ML VIAL (Q9967) ONE; -LIDOCAINE 1% SDV INJ 30 ML VIAL ONE; -TRIAMCINOLONE ACETONIDE SUSP 40 MG/ML VIAL (J3301) ONE; -diphenhydrAMINE 25 MG CAP ONE; -oxyCODONE 5MG TAB ONE
--- NOTE | 2018-11-22 23:23 | ECWPNPC ---
PATIENT NAME: COLTON BELL : 1960 GENDER: FEMALE VISIT DATE: 11/21/2018 DISCHARGE DATE: 11/21/18 1030 VISIT LOCKED DATE TIME: PHYSICIAN: MARIA ESTHER CANO RESOURCE: MARIA ESTHER CANO REASON FOR APPOINTMENT 1. MEDICATION, W/C- PER TE DATED 11/18 HISTORY OF PRESENT ILLNESS HISTORY OF PRESENT ILLNESS: HERE FOR F/U AND MEDICINE MANAGEMENT OF CHRONIC LOW BACK PAIN AND BILATERAL POSTERIOR LEG PAIN.UNABLE TO TOLERATE FENTANYL PATCH DUE TO SKIN IRRITATION.STARTED TIZANIDINE 2MG AT 6PM WITH REPORTS OF URINARY INCONTINENCE.WAS TAKING GABAPENTIN 300MG ONE IN AM AND TWO AT HS AND THIS WAS STOPPED IN JUNE DUE TO GI UPSET.THIS IS A WORK RELATED INJURY WITH DOI: 11-22-08.CONTINUES WITH ELECTRICAL SENSATIONS IN BOTH LEGS LEFT>RIGHT.DISCUSSED MEDICATION AND TREATMENT OPTIONS.RATING PAIN VAS 10/10.CONTINUES WITH POOR SLEEP DUE TO UNCONTROLLED PAIN.AWAITING COMP. APPROVAL FOR [facility].COMPLAINING OF SEVERE LEFT LOW BACK PAIN.PAIN IS WORSE GETTING IN AND OUT OF CAR AND GOING UP AND DOWN STAIRS.THESE ARE SYMPTOMS OF SEVERE SACROILLITIS.DUE TO MEDICATION DENIALS FROM HER WORKMANS COMPENSATION CARRIER PATIENT IS SUFFERING FROM DEPRESSION DUE TO UNCONTROLLED PAIN.DENIES SUICIDE IDEATIONS BUT STATES SHE IS CRYING FREQUENTLY. PAIN THE PATIENT DESCRIBES THE PAIN... THE PATIENT DESCRIBES THE PAIN... THE PATIENT DESCRIBES THE PAIN... THE PATIENT DESCRIBES THE PAIN... THE PATIENT DESCRIBES THE PAIN... THE PATIENT DESCRIBES THE PAIN... FALL RISK SCREENING: SCREENING :NO FALLS REPORTED IN THE LAST YEAR CURRENT MEDICATIONS TAKING ADVIL 200 MG TABLET 1 TABLET NEEDED ORALLY EVERY 6 HRS TAKING VITAMIN D 2000 UNIT TABLET 1 TABLET ORALLY BID TAKING FLONASE 50 MCG/DOSE INHALER 1 SPRAY IN EACH NOSTRIL NASALLY ONCE A DAY TAKING ICY HOT 16 % LIQUID 1 APPLICATION TO AFFECTED AREA NEEDED EXTERNALLY ONCE A DAY TAKING VITAMIN B-12 1000 MCG TABLET 1 TABLET ORALLY ONCE A DAY TAKING OMEPRAZOLE 40 MG CAPSULE DELAYED RELEASE 1 CAPSULE ORALLY ONCE A DAY TAKING NYSTATIN [id number] UNIT/ML SUSPENSION 4 ML EXTERNALLY BID NOT-TAKING OXYCODONE HCL 5 MG TABLET 1-2 ORALLY EVERY 6 HRS PRN MDD4, NOTES: 0600 MEDICATION LIST REVIEWED AND RECONCILED WITH THE PATIENT PAST MEDICAL HISTORY CHRONIC LOW BACK PAIN TENDONITIS LEFT ELBOW ALLERGIES LATEX (FOR ALLERGY USE ONLY): RASH - ALLERGY VALIUM: NAUSEA/VOMITING - ALLERGY SURGICAL HISTORY HYSTERECTOMY BACK SURGERY LEFT CATARACT FAMILY HISTORY FATHER: 57 YRS, DIAGNOSED WITH CANCER, OTHER MOTHER: ALIVE, DIABETES 1 BROTHER(S) , 2 SISTER(S) - HEALTHY. 1 SON(S) , 4 DAUGHTER(S) - HEALTHY. BROTHER DIABETICSISTER DIABETESDAUGHTER HEART PROBLEMS. SOCIAL HISTORY GENERAL: TOBACCO USE ARE YOU A:CURRENT SMOKER ARE YOU INTERESTED IN QUITTING?NOT READY TO QUIT COUNSELED THE PATIENT ON SMOKING EFFECTS, EDUCATION [id number]/27/2019 PATIENT COUNSELED ON THE DANGERS OF TOBACCO USE AND URGED TO QUIT:10/02/2018 OTHERS AT HOME: SPOUSE, CHILD. DIET: REGULAR. LANGUAGE LANGUAGES SPOKEN:[place] RECREATIONAL DRUG USE DRUG USE?NO EXERCISE: WALKS. LEARNING BARRIERS / SPECIAL NEEDS BARRIERS TO LEARNING?NO HEARING IMPAIRED?YES HEARING AIDS BILATERALLY VISION IMPAIRED?YES :CORRECTIVE LENSES COGNITIVELY IMPAIRED?NO READINESS TO LEARN?YES PAIN CLINIC PFS, CLERGY, PUBLIC HEALTH REFERRALS PFS REFERRAL NEEDED?NO CLERGY REFERRAL NEEDED?NO PUBLIC HEALTH REFERRAL NEEDED?NO WAS THE PROVIDER NOTIFIED OF ANY PERTINENT INFO?YES HAS THE PATIENT BEEN EDUCATED REGARDING HIS/HER PLAN OF CARE?YES HAS THE PATIENT BEEN EDUCATED REGARDING PAIN, THE RISK FOR PAIN, THE IMPORTANCE OF EFFECTIVE PAIN MANAGEMENT, AND THE PAIN ASSESSMENT PROCESS?YES LATEX QUESTIONNAIRE LATEX ALLERGY : HAVE YOU EVER DEVELOPED ANY TYPE OF REACTION AFTER HANDLING LATEX PRODUCTS SUCH RUBBER GLOVES, CONDOMS, DIAPHRAGMS, BALLOONS, SOCKS, OR UNDERWEAR?YES - PLEASE INDICATE :RUBBER GLOVES LATEX ALLERGY : HAVE YOU EVER DEVELOPED ANY TYPE OF REACTION DURING OR AFTER DENTAL APPOINTMENT, VAGINAL/RECTAL EXAMINATION, SURGICAL PROCEDURE, OR ANY OTHER EXPOSURE?NO LATEX RISK : HAVE YOU EVER HAD ANY DIFFICULTY BREATHING OR HIVES AFTER EATING OR HANDLING ANY FRUITS, OR VEGETABLES; SUCH KIWI, BANANAS, STONE FRUITS, OR CHESTNUTSNO LATEX RISK : DO YOU HAVE A PREVIOUS PERSONAL HISTORY OF MORE THAN NINE SURGERIES, SPINA BIFIDA, OR REPEATED CATHERTIZATIONS? NO LATEX RISK : ARE YOU FREQUENTLY EXPOSED TO LATEX PRODUCTS IN YOUR OCCUPATION?NO DATE ASKED : 10/02/2018 CAFFEINE CAFFEINE USE?YES ADVANCE DIRECTIVE ADVANCE DIRECTIVE DISCUSSED WITH PATIENT:YES PT HAS NO ADVANCED DIRECTIVES, DECLINES INFORMATION AT THIS TIME NONDENOMINATIONAL [id number] ANABAPTISM MARITAL STATUS: . OCCUPATION: DISABLED. REVIEWED WITH PT 11/16/17 1048 BVREVIEWED WITH PT 01/04/18 1015 LASREVIEWED WITH PT 02/27/18 1020 BVREVIEWED WITH PATIENT 04/04/18 1111 JS. HOSPITALIZATION/MAJOR DIAGNOSTIC PROCEDURE SURGERY RELATED REVIEW OF SYSTEMS REVIEWED BY: PROVIDER: MARIA ESTHER CORRAL . CONSTITUTIONAL: ANY CHANGE IN YOUR MEDICAL CONDITION? NO . CHILLS NO . FEVER NO . INFECTION: DO YOU HAVE NEW INFECTIONS? NO . DO YOU HAVE HISTORY OF MRSA? NO . MUSCULOSKELETAL: ANY NEW PATTERNS OF PAIN OR NUMBNESS? NO . GASTROENTEROLOGY: ANY NEW CHANGE IN BOWEL CONTROL? NO . GENITOURINARY: ANY NEW CHANGE IN BLADDER CONTROL? NO . IS THERE A CHANCE YOU COULD BE ? NO . HEMATOLOGY/LYMPH: DO YOU TAKE ANY BLOOD THINNERS? (FOR EXAMPLE- COUMADIN, PLAVIX, AGGRENOX, PLATEL, PRADAXA, OR XARELTO) NO . WHEN WAS YOUR LAST DOSE? DATE: TIME: . NEUROLOGY: HAVE YOU FALLEN IN THE PAST 12 MONTHS? NO . ANY NEW EXTREMITY NUMBNESS OR WEAKNESS? NO . CARDIOLOGY: DO YOU HAVE A PACEMAKER OR DEFIBRILLATOR? NO . RESPIRATORY: HAVE YOU BEEN SICK IN THE PAST WEEK? NO . FEVER NO . FLU LIKE SYMPTOMS? NO . COUGH NO . INTEGUMENTARY: DO YOU HAVE ANY RASHES OR OPEN SORES? NO . ALLERGIC/IMMUNO: ARE YOU ALLERGIC TO IV DYE? NO . ANY NEW ALLERGIES? NO . PSYCHIATRIC: DO YOU HAVE THOUGHTS OF HURTING YOURSELF OR SOMEONE ELSE? NO . ARE YOU ABUSED, NEGLECTED, OR IN AN UNSAFE ENVIRONMENT? NO . ENDOCRINOLOGY: ARE YOU DIABETIC? NO . OTHER: DO YOU NEED ANY PRESCRIPTIONS? YES, OXYCODONE DENIED BY W/C . IF YES, PLEASE LIST: ____ . ANY NEW PROBLEMS WITH YOUR MEDICATIONS? NO . WHEN DID YOU LAST EAT? ____ . WHEN DID YOU LAST DRINK? ____ . WHAT DID YOU LAST DRINK? ____ . NAME OF PERSON DRIVING YOU HOME? ____ . DO YOU HAVE ANY OTHER QUESTIONS OR CONCERNS NO . VITAL SIGNS WT 219.6 LBS, HT 70 IN, BMI 31.51 INDEX, BP 154/71 MM HG, HR 79 /MIN, RR 16 /MIN, TEMP 97.2 F, OXYGEN SAT % 98%, NA INITIALS SC 09:34, REVIEWED BY: TAYO. EXAMINATION GENERAL EXAMINATION: HEENT:HEAD:, NORMOCEPHALIC, EYES:, EYES NORMAL, NOSE:, NOSE CLEAR, THROAT: NORMAL . LUNGS:LUNG SOUNDS ARE CLEAR . HEART:HEART RATE REGULAR . ABDOMEN:SOFT AND NOT TENDER, NON-DISTENDED . MUSCULOSKELETAL:*, MUSCLE STRENGTH TESTING 2/5 BILATERAL LOWER EXT., PALPATION: POSITIVE FOR PAIN OVER L/S SPINE. POSITIVE FOR PAIN OVER L/S PARASPINALS.WELL HEALED SURGICAL SCAR OVER L/S SPINE.SPECIFIC POINT TENDERNESS OVER LEFT SIJ POSITIVE HELLEN TESTING OVER LEFT LEG TRIGGER POINTS:SPECIFIC TIGHT BANDS OF TISSUE OVER L/S PARASPINALS BILAT. NOTED. SKIN:NORMAL, NO RASH . NEUROLOGIC EXAM:MARKED WEAKNESS OVER RIGHT LEG COMPARED WITH LEFT. DIAGNOSTIC: . WALKS WITH ANTALGIC GAIT AND ASSIT OF CANE. ASSESSMENTS MYALGIA, OTHER SITE - M79.18 (PRIMARY) POSTLAMINECTOMY SYNDROME, NOT ELSEWHERE CLASSIFIED - M96.1 TREATMENT MYALGIA, OTHER SITE START OXYCODONE HCL TABLET, 5 MG, 1 TABLET NEEDED, ORALLY, EVERY 6 HRS PRN PAIN MDD4, 30 DAYS, 120, REFILLS 0 NOTES: W/C REQUEST TPI BILAT. LUMBAR PARASPINAL +PT 2XWK X6WK FOR MYOFASCIAL RELEASE LUMBAR PARASPINALTREATMENT GUIDELINES FOR MYOFASCIAL PAIN RECOMMEND PT FOR MYOFASCIAL RELEASE ACCOMPANY TPI FOR MAXIMUM BENEFIT AND IMPROVED OUTCOME., ISTOP REGISTRY REVIEWED AND DEMONSTRATES COMPLLIANCE. RISKS AND BENEFITS OF NARCOTIC/OPIOD MEDICATIONS WERE REVIEWED WITH PATIENT - THIS INCLUDES BUT IS NOT LIMITED TO RISK OF DEPENDANCE/DEVELOPMENT OF ADDICTION, MOOD DISTURBANCE AND DEPRESSION, OSTEOPOROSIS, HORMONAL AND LABIDAL CHANGES, RESPIRATORY DEPRESSION AND . PATIENT IS ADVISED NOT TO DRIVE OR DRINK ALCOHOL WHILE ON THESE MEDICATIONS,. OTHERS NOTES: OPTIONS: TRIGGER POINT INJECTION MATERIAL WAS PRINTED. PROCEDURES PN WORKMANS' COMP OPINION IN YOUR OPINION, WAS THE INCIDENT THAT THE PATIENT DESCRIBED THE COMPETENT MEDICAL CAUSE OF THIS INJURY/ILLNESS? YES ARE THE PATIENT'S COMPLAINTS CONSISTENT WITH HIS/HER HISTORY OF THE INJURY/ILLNESS? YES IS THE PATIENT'S HISTORY OF THE INJURY/ILLNESS CONSISTENT WITH YOUR OBJECTIVE FINDING? YES WHAT IS THE PERCENTAGE OF TEMPORARY IMPAIRMENT? MODERATE TO MARKED = 66.7% IS THE PATIENT WORKING? NO DOCTOR ON SITE: BETSY QUESADA MD PROCEDURE CODES [id number] ESTABILISHED PATIENT [facility] FACILITY CHARGE DISPOSITION & COMMUNICATION FOLLOW UP POST /2 MOS F/U (REASON: W/C REQUEST TPI BILAT. LUMBAR PARASPINAL +PT 2XWK X6WK FOR MYOFASCIAL RELEASE LUMBAR PARASPINAL) ELECTRONICALLY SIGNED BY ELLIS DAVEY ON 11/22/2018 AT 09:17 AM EDT DISCLAIMER : THIS IS A VISIT SUMMARY EXTRACTED FROM THE [employer] CHART. IT IS NOT A COPY OF THE [employer] PROGRESS NOTE. RONAL
== END ==
LOC: M PAIN 09:15
PROVIDERS: ATTEND Nurse Practitioner Family
DX: M79.18 Myalgia, other site (principal); M96.1 Postlaminectomy syndrome, not elsewhere classified; F17.200 Nicotine dependence, unspecified, uncomplicated; M65.832 Other synovitis and tenosynovitis, left forearm; Z79.899 Other long term (current) drug therapy; Z88.5 Allergy status to narcotic agent; Z91.040 Latex allergy status

== ENCOUNTER → 2019-01-23 | Outpatient (CLI) | payer OTHER ==
[~2019-01-23] MED LIST changes: +BUPIVACAINE HCL 0.25% 10 ML VIAL As Ordered ONE; +BUPIVACAINE HCL 0.25% 30 ML VIAL As Ordered ONE; -DULO1CAP2 PO; +DULO1CAP5 PO; +ONDANSETRON 4 MG ORAL DISINTEGRATING TAB (Q0162 PER 1MG) As Ordered ONE; +TRIAMCINOLONE ACETONIDE SUSP 40 MG/ML VIAL (J3301) As Ordered ONE; +diphenhydrAMINE 25 MG CAP As Ordered ONE; +oxyCODONE 5MG TAB As Ordered ONE
--- NOTE | 2019-01-31 02:07 | ECWPNPC ---
PATIENT NAME: COLTON BELL : 1960 GENDER: FEMALE VISIT DATE: 01/23/2019 DISCHARGE DATE: 01/23/19 1335 VISIT LOCKED DATE TIME: PHYSICIAN: BETSY CHASE MD RESOURCE: BETSY CHASE MD REASON FOR APPOINTMENT 1. WC TPI LOW BACK HISTORY OF PRESENT ILLNESS HISTORY OF PRESENT ILLNESS: PAIN THE PATIENT DESCRIBES THE PAIN... FALL RISK SCREENING: SCREENING :NO FALLS REPORTED IN THE LAST YEAR CURRENT MEDICATIONS TAKING ADVIL 200 MG TABLET 1 TABLET NEEDED ORALLY EVERY 6 HRS TAKING VITAMIN D 2000 UNIT TABLET 1 TABLET ORALLY BID TAKING FLONASE 50 MCG/DOSE INHALER 1 SPRAY IN EACH NOSTRIL NASALLY ONCE A DAY TAKING ICY HOT 16 % LIQUID 1 APPLICATION TO AFFECTED AREA NEEDED EXTERNALLY ONCE A DAY TAKING VITAMIN B-12 1000 MCG TABLET 1 TABLET ORALLY ONCE A DAY TAKING OMEPRAZOLE 40 MG CAPSULE DELAYED RELEASE 1 CAPSULE ORALLY ONCE A DAY TAKING NYSTATIN [id number] UNIT/ML SUSPENSION 4 ML EXTERNALLY BID TAKING OXYCODONE HCL 5 MG TABLET 1 TABLET NEEDED ORALLY EVERY 6 HRS PRN PAIN MDD4, NOTES: OUT NOT-TAKING OXYCODONE HCL 5 MG TABLET 1-2 ORALLY EVERY 6 HRS PRN MDD4, NOTES: 0600 MEDICATION LIST REVIEWED AND RECONCILED WITH THE PATIENT PAST MEDICAL HISTORY CHRONIC LOW BACK PAIN TENDONITIS LEFT ELBOW ALLERGIES LATEX (FOR ALLERGY USE ONLY): RASH - ALLERGY VALIUM: NAUSEA/VOMITING - ALLERGY SURGICAL HISTORY HYSTERECTOMY BACK SURGERY LEFT CATARACT FAMILY HISTORY FATHER: 57 YRS, DIAGNOSED WITH CANCER, OTHER MOTHER: ALIVE, DIABETES 1 BROTHER(S) , 2 SISTER(S) - HEALTHY. 1 SON(S) , 4 DAUGHTER(S) - HEALTHY. BROTHER DIABETICSISTER DIABETESDAUGHTER HEART PROBLEMS. SOCIAL HISTORY GENERAL: TOBACCO USE ARE YOU A:CURRENT SMOKER ARE YOU INTERESTED IN QUITTING?NOT READY TO QUIT COUNSELED THE PATIENT ON SMOKING EFFECTS, EDUCATION [id number]/29/2019 PATIENT COUNSELED ON THE DANGERS OF TOBACCO USE AND URGED TO QUIT:01/23/2019 OTHERS AT HOME: SPOUSE, CHILD. DIET: REGULAR. LANGUAGE LANGUAGES SPOKEN:[place] RECREATIONAL DRUG USE DRUG USE?NO EXERCISE: WALKS. LEARNING BARRIERS / SPECIAL NEEDS BARRIERS TO LEARNING?NO HEARING IMPAIRED?YES HEARING AIDS BILATERALLY VISION IMPAIRED?YES :CORRECTIVE LENSES COGNITIVELY IMPAIRED?NO READINESS TO LEARN?YES PAIN CLINIC PFS, CLERGY, PUBLIC HEALTH REFERRALS PFS REFERRAL NEEDED?NO CLERGY REFERRAL NEEDED?NO PUBLIC HEALTH REFERRAL NEEDED?NO WAS THE PROVIDER NOTIFIED OF ANY PERTINENT INFO?YES HAS THE PATIENT BEEN EDUCATED REGARDING HIS/HER PLAN OF CARE?YES HAS THE PATIENT BEEN EDUCATED REGARDING PAIN, THE RISK FOR PAIN, THE IMPORTANCE OF EFFECTIVE PAIN MANAGEMENT, AND THE PAIN ASSESSMENT PROCESS?YES LATEX QUESTIONNAIRE LATEX ALLERGY : HAVE YOU EVER DEVELOPED ANY TYPE OF REACTION AFTER HANDLING LATEX PRODUCTS SUCH RUBBER GLOVES, CONDOMS, DIAPHRAGMS, BALLOONS, SOCKS, OR UNDERWEAR?YES - PLEASE INDICATE :RUBBER GLOVES LATEX ALLERGY : HAVE YOU EVER DEVELOPED ANY TYPE OF REACTION DURING OR AFTER DENTAL APPOINTMENT, VAGINAL/RECTAL EXAMINATION, SURGICAL PROCEDURE, OR ANY OTHER EXPOSURE?NO LATEX RISK : HAVE YOU EVER HAD ANY DIFFICULTY BREATHING OR HIVES AFTER EATING OR HANDLING ANY FRUITS, OR VEGETABLES; SUCH KIWI, BANANAS, STONE FRUITS, OR CHESTNUTSNO LATEX RISK : DO YOU HAVE A PREVIOUS PERSONAL HISTORY OF MORE THAN NINE SURGERIES, SPINA BIFIDA, OR REPEATED CATHERIZATIONS? NO LATEX RISK : ARE YOU FREQUENTLY EXPOSED TO LATEX PRODUCTS IN YOUR OCCUPATION?NO DATE ASKED : 10/02/2018 ACTIVE LATEX ALLERGY CAFFEINE CAFFEINE USE?YES ADVANCE DIRECTIVE ADVANCE DIRECTIVE DISCUSSED WITH PATIENT:YES PT HAS NO ADVANCED DIRECTIVES, DECLINES INFORMATION AT THIS TIME. MU-ISM [id number] TAOIST MARITAL STATUS: . OCCUPATION: DISABLED. REVIEWED WITH PT 11/16/17 1048 BVREVIEWED WITH PT 01/04/18 1015 LASREVIEWED WITH PT 02/27/18 1020 BVREVIEWED WITH PATIENT 04/04/18 1111 JSREVIEWED WITH PATIENT 01/23/19 1212 JS. HOSPITALIZATION/MAJOR DIAGNOSTIC PROCEDURE SURGERY RELATED REVIEW OF SYSTEMS REVIEWED BY: PROVIDER: . CONSTITUTIONAL: ANY CHANGE IN YOUR MEDICAL CONDITION? NO . CHILLS NO . FEVER NO . INFECTION: DO YOU HAVE NEW INFECTIONS? NO . DO YOU HAVE HISTORY OF MRSA? NO . MUSCULOSKELETAL: ANY NEW PATTERNS OF PAIN OR NUMBNESS? YES, NEW SHOOTING ELECTRIC-LIKE PAIN DOWN RIGHT LEG . GASTROENTEROLOGY: ANY NEW CHANGE IN BOWEL CONTROL? NO . GENITOURINARY: ANY NEW CHANGE IN BLADDER CONTROL? NO . IS THERE A CHANCE YOU COULD BE ? NO . HEMATOLOGY/LYMPH: DO YOU TAKE ANY BLOOD THINNERS? (FOR EXAMPLE- COUMADIN, PLAVIX, AGGRENOX, PLATEL, PRADAXA, OR XARELTO) NO . WHEN WAS YOUR LAST DOSE? DATE: TIME: . NEUROLOGY: HAVE YOU FALLEN IN THE PAST 12 MONTHS? NO . ANY NEW EXTREMITY NUMBNESS OR WEAKNESS? NO . CARDIOLOGY: DO YOU HAVE A PACEMAKER OR DEFIBRILLATOR? NO . RESPIRATORY: HAVE YOU BEEN SICK IN THE PAST WEEK? NO . FEVER NO . FLU LIKE SYMPTOMS? NO . COUGH NO . INTEGUMENTARY: DO YOU HAVE ANY RASHES OR OPEN SORES? NO . ALLERGIC/IMMUNO: ARE YOU ALLERGIC TO IV DYE? NO . ANY NEW ALLERGIES? NO . PSYCHIATRIC: DO YOU HAVE THOUGHTS OF HURTING YOURSELF OR SOMEONE ELSE? NO . ARE YOU ABUSED, NEGLECTED, OR IN AN UNSAFE ENVIRONMENT? NO . ENDOCRINOLOGY: ARE YOU DIABETIC? NO . OTHER: DO YOU NEED ANY PRESCRIPTIONS? NO . IF YES, PLEASE LIST: ____ . ANY NEW PROBLEMS WITH YOUR MEDICATIONS? NO . WHEN DID YOU LAST EAT? ____01/22/19 1800 . WHEN DID YOU LAST DRINK? ____01/23/19 0600 . WHAT DID YOU LAST DRINK? ____WATER . NAME OF PERSON DRIVING YOU HOME? ____ISSAC VILLARREAL . DO YOU HAVE ANY OTHER QUESTIONS OR CONCERNS NO . VITAL SIGNS WT 222.2 LBS, HT 70 IN, BMI 31.88 INDEX, BP 156/67 MM HG, HR 87 /MIN, RR 16 /MIN, TEMP 97.0 F, OXYGEN SAT % 98%, SAFE IN ENV? (Y/N) YES, NA INITIALS NC 11:17, REVIEWED BY: JS. ASSESSMENTS MYALGIA, OTHER SITE - M79.18 (PRIMARY) PROCEDURES PN WORKMANS' COMP OPINION IN YOUR OPINION, WAS THE INCIDENT THAT THE PATIENT DESCRIBED THE COMPETENT MEDICAL CAUSE OF THIS INJURY/ILLNESS? YES ARE THE PATIENT'S COMPLAINTS CONSISTENT WITH HIS/HER HISTORY OF THE INJURY/ILLNESS? YES IS THE PATIENT'S HISTORY OF THE INJURY/ILLNESS CONSISTENT WITH YOUR OBJECTIVE FINDING? YES WHAT IS THE PERCENTAGE OF TEMPORARY IMPAIRMENT? MODERATE TO MARKED = 66.7% IS THE PATIENT WORKING? NO DOCTOR ON SITE: BETSY QUESADA MD PN TRIGGER POINT INJECTION WITH STEROIDS PRE PROCEDURE DIAGNOSIS 1. MYALGIA 2. PAIN AT BILATERAL LOW BACK AREA. POST PROCEDURE DIAGNOSIS 1. MYALGIA 2. PAIN AT BILATERAL LOW BACK AREA. PROCEDURE TRIGGER POINT INJECTION AT THE RIGHT AND LEFT LOW BACK AREA. SURGEON DR. BETSY CHASE OLIVE PACKER NONE ANESTHESIA LOCAL PRE PROCEDURE NOTE THE PATIENT HAS A HISTORY OF CHRONIC PAIN AT THE RIGHT AND LEFT LOW BACK AREA. I EVALUATED THE PATIENT AND REVIEWED THE CHART. THERE IS EVIDENCE OF BANDS OF TISSUE WITH RESTRICTION OF MOVEMENT AND PRESENCE OF TRIGGER POINT AT THE AFFECTED AREA. I WENT OVER THE RISKS, ALTERNATIVES, AND BENEFITS ASSOCIATED WITH THIS PROCEDURE. THE PATIENT WOULD LIKE TO PROCEED AND GIVE CONSENT TO PERFORMED THE PROCEDURE. THE PATIENT DENIES UNEXPLAINABLE WEIGHT LOSS, FEVER, CHILLS, OR NEW CHANGES IN URINARY OR BOWEL CONTROL DESCRIPTION OF PROCEDURE THE PATIENT WAS BROUGHT TO THE PROCEDURE ROOM AND PLACED IN THE SITTING POSITION. THE AREA WAS CLEANED WITH ALCOHOL. THE PROCEDURE WAS DONE USING ASEPTIC STERILE TECHNIQUE. I CHECKED LATERALITY AND THE LEVEL WHERE THE PROCEDURE WAS GOING TO BE PERFORMED WITH THE PATIENT AND THE SUPPORTING STAFF AT THE MOMENT OF THE TIME OUT IN THE PROCEDURE ROOM. USING A 25-GAUGE NEEDLE, TRIGGER POINTS WERE INJECTED AT THE RIGHT AND LEFT LOW BACK AREA WITH A TOTAL OF 40 ML OF BUPIVACAINE 0.25% AND KENALOG 40 MG. THERE WAS NO EVIDENCE OF BLOOD, PARESTHESIA OR CEREBROSPINAL FLUID DURING THE PROCEDURE. THE PATIENT WAS SENT TO THE RECOVERY ROOM. THE PATIENT WAS MOVING THE EXTREMITIES AND DOING WELL. THERE WAS NO COMPLICATION DURING THE PROCEDURE POST PROCEDURE NOTE THE PATIENT WILL BE SEEN IN A FOLLOW UP IN THE NEXT FEW WEEKS. INSTRUCTIONS WERE GIVEN, QUESTIONS WERE ANSWERED, AND THE PATIENT EXPRESSED UNDERSTANDING AND AGREES WITH THE PLAN. I, NYA MILAN, DOCUMENTED THE ABOVE INFORMATION ACTING A SCRIBE FOR DR. CHASE. I HAVE REVIEWED THE ABOVE DOCUMENT, WRITTEN BY NYA COLLINS AND I VERIFY THAT IT IS ACCURATE. PROCEDURE CODES 50163 INJ TRIGGER POINT 05/29 [facility] DISPOSITION & COMMUNICATION FOLLOW UP 3 WEEKS ELECTRONICALLY SIGNED BY BETSY CHASE MD, MD ON 01/30/2019 AT 01:33 PM EDT DISCLAIMER : THIS IS A VISIT SUMMARY EXTRACTED FROM THE [employer] CHART. IT IS NOT A COPY OF THE [employer] PROGRESS NOTE. RONAL
== END ==
LOC: M PAIN 11:15
PROVIDERS: ATTEND Anesthesiology
DX: M79.18 Myalgia, other site (principal); M54.5 Low back pain; F17.210 Nicotine dependence, cigarettes, uncomplicated; Z90.710 Acquired absence of both cervix and uterus; Z98.42 Cataract extraction status, left eye; Z79.891 Long term (current) use of opiate analgesic; Z79.899 Other long term (current) drug therapy; Z88.5 Allergy status to narcotic agent; Z91.040 Latex allergy status
CPT/HCPCS: 20552; J3301; Q0162

== ENCOUNTER → 2019-02-10 | Outpatient (CLI) | payer OTHER ==
[~2019-02-10] MED LIST changes: -BUPIVACAINE HCL 0.25% 10 ML VIAL As Ordered ONE; -BUPIVACAINE HCL 0.25% 30 ML VIAL As Ordered ONE; -ONDANSETRON 4 MG ORAL DISINTEGRATING TAB (Q0162 PER 1MG) As Ordered ONE; -TRIAMCINOLONE ACETONIDE SUSP 40 MG/ML VIAL (J3301) As Ordered ONE; -diphenhydrAMINE 25 MG CAP As Ordered ONE; -oxyCODONE 5MG TAB As Ordered ONE
--- NOTE | 2019-02-25 00:20 | ECWPNPC ---
PATIENT NAME: COLTON BELL : 1960 GENDER: FEMALE VISIT DATE: 02/10/2019 DISCHARGE DATE: 02/10/19 1144 VISIT LOCKED DATE TIME: PHYSICIAN: MARIA ESTHER CANO RESOURCE: MARIA ESTHER CANO REASON FOR APPOINTMENT 1. W/C POST TPI HISTORY OF PRESENT ILLNESS HISTORY OF PRESENT ILLNESS: HERE FOR POST PROCEDURE F/U OF CHRONIC LOW BACK PAIN AND BILATERAL POSTERIOR LEG PAIN.HAD TPI LOW BACK ON 01/23/19.REPORTING A FEW DAYS OF SOME IMPROVEMENT.UNABLE TO TOLERATE FENTANYL PATCH DUE TO SKIN IRRITATION.STARTED TIZANIDINE 2MG AT 6PM WITH REPORTS OF URINARY INCONTINENCE.WAS TAKING GABAPENTIN 300MG ONE IN AM AND TWO AT HS AND THIS WAS STOPPED IN JUNE DUE TO GI UPSET.THIS IS A WORK RELATED INJURY WITH DOI: 11-22-08.CONTINUES WITH ELECTRICAL SENSATIONS IN BOTH LEGS LEFT>RIGHT.DISCUSSED MEDICATION AND TREATMENT OPTIONS.RATING PAIN VAS 10/10.CONTINUES WITH POOR SLEEP DUE TO UNCONTROLLED PAIN.AWAITING COMP. APPROVAL FOR [facility].COMPLAINING OF SEVERE LEFT LOW BACK PAIN.PAIN IS WORSE GETTING IN AND OUT OF CAR AND GOING UP AND DOWN STAIRS. PAIN THE PATIENT DESCRIBES THE PAIN... THE PATIENT DESCRIBES THE PAIN... THE PATIENT DESCRIBES THE PAIN... THE PATIENT DESCRIBES THE PAIN... THE PATIENT DESCRIBES THE PAIN... THE PATIENT DESCRIBES THE PAIN... THE PATIENT DESCRIBES THE PAIN... FALL RISK SCREENING: SCREENING :NO FALLS REPORTED IN THE LAST YEAR CURRENT MEDICATIONS TAKING ADVIL 200 MG TABLET 1 TABLET NEEDED ORALLY EVERY 6 HRS TAKING VITAMIN D 2000 UNIT TABLET 1 TABLET ORALLY BID TAKING FLONASE 50 MCG/DOSE INHALER 1 SPRAY IN EACH NOSTRIL NASALLY ONCE A DAY TAKING ICY HOT 16 % LIQUID 1 APPLICATION TO AFFECTED AREA NEEDED EXTERNALLY ONCE A DAY TAKING VITAMIN B-12 1000 MCG TABLET 1 TABLET ORALLY ONCE A DAY TAKING OMEPRAZOLE 40 MG CAPSULE DELAYED RELEASE 1 CAPSULE ORALLY ONCE A DAY TAKING NYSTATIN 610892 UNIT/ML SUSPENSION 4 ML EXTERNALLY BID TAKING OXYCODONE HCL 5 MG TABLET 1 TABLET NEEDED ORALLY EVERY 6 HRS PRN PAIN MDD4, NOTES: OUT- HAS NOT HAD SCRIPT NOT-TAKING OXYCODONE HCL 5 MG TABLET 1-2 ORALLY EVERY 6 HRS PRN MDD4, NOTES: 0600 MEDICATION LIST REVIEWED AND RECONCILED WITH THE PATIENT PAST MEDICAL HISTORY CHRONIC LOW BACK PAIN TENDONITIS LEFT ELBOW ALLERGIES LATEX (FOR ALLERGY USE ONLY): RASH - ALLERGY VALIUM: NAUSEA/VOMITING - ALLERGY SURGICAL HISTORY HYSTERECTOMY BACK SURGERY LEFT CATARACT FAMILY HISTORY FATHER: 57 YRS, DIAGNOSED WITH OTHER MALIGNANT NEOPLASM OF UNSPECIFIED SITE, OTHER SPECIFIED CONDITIONS INFLUENCING HEALTH STATUS MOTHER: ALIVE, DIABETES 1 BROTHER(S) , 2 SISTER(S) - HEALTHY. 1 SON(S) , 4 DAUGHTER(S) - HEALTHY. BROTHER DIABETICSISTER DIABETESDAUGHTER HEART PROBLEMS. SOCIAL HISTORY GENERAL: TOBACCO USE ARE YOU A:CURRENT SMOKER ARE YOU INTERESTED IN QUITTING?NOT READY TO QUIT COUNSELED THE PATIENT ON SMOKING EFFECTS, EDUCATION [id number]/29/2019 PATIENT COUNSELED ON THE DANGERS OF TOBACCO USE AND URGED TO QUIT:02/10/2019 OTHERS AT HOME: SPOUSE, CHILD. DIET: REGULAR. LANGUAGE LANGUAGES SPOKEN:MONGOLIAN RECREATIONAL DRUG USE DRUG USE?NO EXERCISE: WALKS. LEARNING BARRIERS / SPECIAL NEEDS BARRIERS TO LEARNING?NO HEARING IMPAIRED?YES HEARING AIDS BILATERALLY VISION IMPAIRED?YES COGNITIVELY IMPAIRED?NO :CORRECTIVE LENSES READINESS TO LEARN?YES PAIN CLINIC PFS, CLERGY, PUBLIC HEALTH REFERRALS PFS REFERRAL NEEDED?NO CLERGY REFERRAL NEEDED?NO PUBLIC HEALTH REFERRAL NEEDED?NO WAS THE PROVIDER NOTIFIED OF ANY PERTINENT INFO?YES HAS THE PATIENT BEEN EDUCATED REGARDING HIS/HER PLAN OF CARE?YES HAS THE PATIENT BEEN EDUCATED REGARDING PAIN, THE RISK FOR PAIN, THE IMPORTANCE OF EFFECTIVE PAIN MANAGEMENT, AND THE PAIN ASSESSMENT PROCESS?YES LATEX QUESTIONNAIRE LATEX ALLERGY : HAVE YOU EVER DEVELOPED ANY TYPE OF REACTION AFTER HANDLING LATEX PRODUCTS SUCH RUBBER GLOVES, CONDOMS, DIAPHRAGMS, BALLOONS, SOCKS, OR UNDERWEAR?YES LATEX ALLERGY : HAVE YOU EVER DEVELOPED ANY TYPE OF REACTION DURING OR AFTER DENTAL APPOINTMENT, VAGINAL/RECTAL EXAMINATION, SURGICAL PROCEDURE, OR ANY OTHER EXPOSURE?NO - PLEASE INDICATE :RUBBER GLOVES DATE ASKED : 10/02/2018 ACTIVE LATEX ALLERGY LATEX RISK : HAVE YOU EVER HAD ANY DIFFICULTY BREATHING OR HIVES AFTER EATING OR HANDLING ANY FRUITS, OR VEGETABLES; SUCH KIWI, BANANAS, STONE FRUITS, OR CHESTNUTSNO LATEX RISK : DO YOU HAVE A PREVIOUS PERSONAL HISTORY OF MORE THAN NINE SURGERIES, SPINA BIFIDA, OR REPEATED CATHERIZATIONS? NO LATEX RISK : ARE YOU FREQUENTLY EXPOSED TO LATEX PRODUCTS IN YOUR OCCUPATION?NO CAFFEINE CAFFEINE USE?YES ADVANCE DIRECTIVE ADVANCE DIRECTIVE DISCUSSED WITH PATIENT:YES PT HAS NO ADVANCED DIRECTIVES, DECLINES INFORMATION AT THIS TIME. SABIANISM [id number] ZOROASTRIAN MARITAL STATUS: . OCCUPATION: DISABLED. REVIEWED WITH PT 11/16/17 1048 BVREVIEWED WITH PT 01/04/18 1015 LASREVIEWED WITH PT 02/27/18 1020 BVREVIEWED WITH PATIENT 04/04/18 1111 JSREVIEWED WITH PATIENT 01/23/19 1212 JSREVIEWED WITH PATIENT 02/10/19 1054 NLJ. HOSPITALIZATION/MAJOR DIAGNOSTIC PROCEDURE SURGERY RELATED REVIEW OF SYSTEMS REVIEWED BY: PROVIDER: MARIA ESTHER CORRAL . CONSTITUTIONAL: ANY CHANGE IN YOUR MEDICAL CONDITION? NO . CHILLS NO . FEVER NO . INFECTION: DO YOU HAVE NEW INFECTIONS? NO . DO YOU HAVE HISTORY OF MRSA? NO . MUSCULOSKELETAL: ANY NEW PATTERNS OF PAIN OR NUMBNESS? YES- STATES TPI WORKED FOR MAYBE A DAY OR TWO, STATES HER PAIN HAS RETURNED TO PRE- INJECTION LEVEL, STATES SHE FEELS ANS "ELECTRICAL SHOCK IN BILATERAL LEGS" . GASTROENTEROLOGY: ANY NEW CHANGE IN BOWEL CONTROL? NO . GENITOURINARY: ANY NEW CHANGE IN BLADDER CONTROL? NO . IS THERE A CHANCE YOU COULD BE ? NO . HEMATOLOGY/LYMPH: DO YOU TAKE ANY BLOOD THINNERS? (FOR EXAMPLE- COUMADIN, PLAVIX, AGGRENOX, PLATEL, PRADAXA, OR XARELTO) NO . WHEN WAS YOUR LAST DOSE? DATE: TIME: . NEUROLOGY: HAVE YOU FALLEN IN THE PAST 12 MONTHS? NO . ANY NEW EXTREMITY NUMBNESS OR WEAKNESS? YES- STATES SHE HAD FELT AN "ELECTRICAL SHOCK FEELING IN LEFT LEG NOW SHE FEELS IT IN BOTH LEGS" . CARDIOLOGY: DO YOU HAVE A PACEMAKER OR DEFIBRILLATOR? NO . RESPIRATORY: HAVE YOU BEEN SICK IN THE PAST WEEK? NO . FEVER NO . FLU LIKE SYMPTOMS? NO . COUGH NO . INTEGUMENTARY: DO YOU HAVE ANY RASHES OR OPEN SORES? NO . ALLERGIC/IMMUNO: ARE YOU ALLERGIC TO IV DYE? NO . ANY NEW ALLERGIES? NO . PSYCHIATRIC: DO YOU HAVE THOUGHTS OF HURTING YOURSELF OR SOMEONE ELSE? NO . ARE YOU ABUSED, NEGLECTED, OR IN AN UNSAFE ENVIRONMENT? NO . ENDOCRINOLOGY: ARE YOU DIABETIC? NO . OTHER: DO YOU NEED ANY PRESCRIPTIONS? NO . IF YES, PLEASE LIST: ____ . ANY NEW PROBLEMS WITH YOUR MEDICATIONS? NO . WHEN DID YOU LAST EAT? ____ . WHEN DID YOU LAST DRINK? ____ . WHAT DID YOU LAST DRINK? ____ . NAME OF PERSON DRIVING YOU HOME? ____ . DO YOU HAVE ANY OTHER QUESTIONS OR CONCERNS YES- STATES SHE NEEDS HER OXYCODONE REFILLED, STATES SHE HAS NOT HAD A PERSCRIPTION FILLED SINCE ABOUT LAST MARCH BECUASE W/C KEEPS DENYING MED- STATES THAT W/C STATES THAT THERE IS NOT ENOUGH INFORMATION STATING WHY PT NEEDS MED . VITAL SIGNS WT 222.4 LBS, HT 70 IN, BMI 31.91 INDEX, BP 132/63 MM HG, HR 76 /MIN, RR 18 /MIN, TEMP 96.9 F, OXYGEN SAT % 97%, SAFE IN ENV? (Y/N) YES, NA INITIALS AW 1052, REVIEWED BY: CARMEN. EXAMINATION GENERAL EXAMINATION: HEENT:HEAD:, NORMOCEPHALIC, EYES:, EYES NORMAL, NOSE:, NOSE CLEAR, THROAT: NORMAL . LUNGS:LUNG SOUNDS ARE CLEAR . HEART:HEART RATE REGULAR . ABDOMEN:SOFT AND NOT TENDER, NON-DISTENDED . MUSCULOSKELETAL:*, MUSCLE STRENGTH TESTING 2/5 BILATERAL LOWER EXT., PALPATION: POSITIVE FOR PAIN OVER L/S SPINE. POSITIVE FOR PAIN OVER L/S PARASPINALS.WELL HEALED SURGICAL SCAR OVER L/S SPINE.SPECIFIC POINT TENDERNESS OVER LEFT SIJ POSITIVE HELLEN TESTING OVER LEFT LEG TRIGGER POINTS:SPECIFIC TIGHT BANDS OF TISSUE OVER L/S PARASPINALS BILAT. NOTED. SKIN:NORMAL, NO RASH . NEUROLOGIC EXAM:MARKED WEAKNESS OVER RIGHT LEG COMPARED WITH LEFT. DIAGNOSTIC: . WALKS WITH ANTALGIC GAIT AND ASSIT OF CANE. ASSESSMENTS MYALGIA, OTHER SITE - M79.18 (PRIMARY) POSTLAMINECTOMY SYNDROME, NOT ELSEWHERE CLASSIFIED - M96.1 TREATMENT MYALGIA, OTHER SITE REFERRAL TO:[facility] REASON:W/C MED MGMNT-POST LAMINECTOMY SYNDROME PROCEDURES PN WORKMANS' COMP OPINION IN YOUR OPINION, WAS THE INCIDENT THAT THE PATIENT DESCRIBED THE COMPETENT MEDICAL CAUSE OF THIS INJURY/ILLNESS? YES ARE THE PATIENT'S COMPLAINTS CONSISTENT WITH HIS/HER HISTORY OF THE INJURY/ILLNESS? YES IS THE PATIENT'S HISTORY OF THE INJURY/ILLNESS CONSISTENT WITH YOUR OBJECTIVE FINDING? YES WHAT IS THE PERCENTAGE OF TEMPORARY IMPAIRMENT? MODERATE TO MARKED = 66.7% IS THE PATIENT WORKING? NO DOCTOR ON SITE: BETSY QUESADA MD PROCEDURE CODES FA211 ESTABILISHED PATIENT [facility] CHARGE DISPOSITION & COMMUNICATION FOLLOW UP PT WILL CALL (REASON: CALL [facility] AND HAVE THEM USE [phone] CELL #TO REACH PATIENT) ELECTRONICALLY SIGNED BY ELLIS DAVEY ON 02/24/2019 AT 04:09 PM EDT DISCLAIMER : THIS IS A VISIT SUMMARY EXTRACTED FROM THE [employer] CHART. IT IS NOT A COPY OF THE [employer] PROGRESS NOTE. RONAL
== END ==
LOC: M PAIN 10:45
PROVIDERS: ATTEND Nurse Practitioner Family
DX: M79.18 Myalgia, other site (principal); M96.1 Postlaminectomy syndrome, not elsewhere classified; F17.210 Nicotine dependence, cigarettes, uncomplicated; Z88.5 Allergy status to narcotic agent; Z91.040 Latex allergy status; Z79.899 Other long term (current) drug therapy

== ENCOUNTER → 2019-10-03 | Outpatient (REF) | payer MEDICARE | LOC: M LAB REF 17:28 | PROVIDERS: ATTEND Ophthalmology | DX: D23.122 Other benign neoplasm of skin of left lower eyelid, including canthus (principal) ==

== ENCOUNTER → 2019-11-26 | Outpatient (CLI) | payer OTHER ==
--- NOTE | 2019-12-09 02:57 | ECWPNPC ---
PATIENT NAME: COLTON BELL : 1960 GENDER: FEMALE VISIT DATE: 11/26/2019 DISCHARGE DATE: 11/26/19 1138 VISIT LOCKED DATE TIME: PHYSICIAN: MARIA ESTHER CANO RESOURCE: MARIA ESTHER CANO REASON FOR APPOINTMENT 1. W/C LOW BACK HISTORY OF PRESENT ILLNESS GENERAL: -. FALL RISK SCREENING: SCREENING :NO FALLS REPORTED IN THE LAST YEAR PAIN SCREENING: PATIENT HAS A COMPLAINT OF ACUTE OR CHRONIC PAIN :YES 11/26/19 INTENSITY OF PAIN (SCALE OF 1 TO 10):10 WHAT DOES YOUR PAIN FEEL LIKE:ACHING, BURNING, CONTINOUS, SHARP, STABBING, THROBBING, SHOOTING PAIN IS INCREASED BY: NOT SURE PAIN IS DECREASED BY: NOTHING NURSING NOTE: -. PAIN CENTER INTAKE QUESTIONS: DO YOU HAVE A HISTORY OF MRSA? :NO DO YOU TAKE A BLOOD THINNERS? :NO DO YOU HAVE ANY BLEEDING DISORDERS? :NO ANY NEW NUMBNESS OR WEAKNESS IN YOUR LEGS OR ARMS? :YES LEG NUMBNESS AND LEFT LEG TINGLING ANY PACEMAKER,DEFIBRILLATOR, OR DORSAL COLUMN STIMULATOR? :NO DO YOU HAVE ANY RASHES OR OPEN SORES? :NO ARE YOU ALLERGIC TO IV DYE? :NO ARE YOU DIABETIC? :NO ANY NEW PROBLEMS WITH YOUR MEDICATIONS? :NO HAVE YOU RECEIVED A VACCINE IN THE PAST 30 DAYS? :NO DO YOU PLAN TO RECEIVE A VACCINE IN THE NEXT 21 DAYS? :NO DO YOU NEED ANY PRESCRIPTION? :NO DO YOU TAKE ANY IMMUNOSUPPRESSIVE MEDICATIONS? :NO IS THERE A CHANCE YOU COULD BE ? :NO ARE YOU BREAST FEEDING? :NO HISTORY OF PRESENT ILLNESS: HERE FOR FOLLOW-UP OF CHRONIC LOW BACK PAIN WITH HISTORY OF POSTLAMINECTOMY PAIN SYNDROME AND LUMBAR RADICULOPATHY. PATIENT IS INTERESTED IN TRYING DORSAL COLUMN STIMULATOR TRIAL. UNABLE TO TOLERATE FENTANYL PATCH DUE TO SKIN IRRITATION.STARTED TIZANIDINE 2MG AT 6PM WITH REPORTS OF URINARY INCONTINENCE.WAS TAKING GABAPENTIN 300MG ONE IN AM AND TWO AT HS AND THIS WAS STOPPED IN JUNE DUE TO GI UPSET.THIS IS A WORK RELATED INJURY WITH DOI: 11-22-08.CONTINUES WITH ELECTRICAL SENSATIONS IN BOTH LEGS LEFT>RIGHT.DISCUSSED MEDICATION AND TREATMENT OPTIONS.RATING PAIN VAS 10/10.CONTINUES WITH POOR SLEEP DUE TO UNCONTROLLED PAIN.COMPLAINING OF SEVERE LEFT LOW BACK PAIN.PAIN IS WORSE GETTING IN AND OUT OF CAR AND GOING UP AND DOWN STAIRS. PAIN THE PATIENT DESCRIBES THE PAIN... THE PATIENT DESCRIBES THE PAIN... THE PATIENT DESCRIBES THE PAIN... THE PATIENT DESCRIBES THE PAIN... THE PATIENT DESCRIBES THE PAIN... THE PATIENT DESCRIBES THE PAIN... THE PATIENT DESCRIBES THE PAIN... CURRENT MEDICATIONS TAKING ADVIL 200 MG TABLET 1 TABLET NEEDED ORALLY EVERY 6 HRS TAKING FLONASE 50 MCG/DOSE INHALER 1 SPRAY IN EACH NOSTRIL NASALLY ONCE A DAY TAKING VITAMIN D 2000 UNIT TABLET 1 TABLET ORALLY BID TAKING VITAMIN B-12 1000 MCG TABLET 1 TABLET ORALLY ONCE A DAY TAKING OXYCODONE HCL 5 MG TABLET 1 TABLET NEEDED ORALLY EVERY 6 HRS PRN PAIN MDD4 NOT-TAKING ICY HOT 16 % LIQUID 1 APPLICATION TO AFFECTED AREA NEEDED EXTERNALLY ONCE A DAY NOT-TAKING OMEPRAZOLE 40 MG CAPSULE DELAYED RELEASE 1 CAPSULE ORALLY ONCE A DAY NOT-TAKING NYSTATIN 200049 UNIT/ML SUSPENSION 4 ML EXTERNALLY BID PAST MEDICAL HISTORY CHRONIC LOW BACK PAIN TENDONITIS LEFT ELBOW ALLERGIES LATEX (FOR ALLERGY USE ONLY): RASH - ALLERGY VALIUM: NAUSEA/VOMITING - ALLERGY LYRICA: BLURRED VISION SURGICAL HISTORY HYSTERECTOMY BACK SURGERY LEFT CATARACT FAMILY HISTORY FATHER: 57 YRS, DIAGNOSED WITH OTHER MALIGNANT NEOPLASM OF UNSPECIFIED SITE, OTHER SPECIFIED CONDITIONS INFLUENCING HEALTH STATUS MOTHER: ALIVE, DIABETES 1 BROTHER(S) , 2 SISTER(S) - HEALTHY. 1 SON(S) , 4 DAUGHTER(S) - HEALTHY. BROTHER DIABETICSISTER DIABETESDAUGHTER HEART PROBLEMS. SOCIAL HISTORY GENERAL: TOBACCO USE ARE YOU A:CURRENT SMOKER ARE YOU INTERESTED IN QUITTING?NOT READY TO QUIT COUNSELED THE PATIENT ON SMOKING EFFECTS, EDUCATION [id number]/01/2020 PATIENT COUNSELED ON THE DANGERS OF TOBACCO USE AND URGED TO QUIT:02/10/2019 LATEX QUESTIONNAIRE LATEX ALLERGY : HAVE YOU EVER DEVELOPED ANY TYPE OF REACTION AFTER HANDLING LATEX PRODUCTS SUCH RUBBER GLOVES, CONDOMS, DIAPHRAGMS, BALLOONS, SOCKS, OR UNDERWEAR?YES LATEX ALLERGY : HAVE YOU EVER DEVELOPED ANY TYPE OF REACTION DURING OR AFTER DENTAL APPOINTMENT, VAGINAL/RECTAL EXAMINATION, SURGICAL PROCEDURE, OR ANY OTHER EXPOSURE?NO - PLEASE INDICATE :RUBBER GLOVES DATE ASKED : 10/02/2018 ACTIVE LATEX ALLERGY LATEX RISK : HAVE YOU EVER HAD ANY DIFFICULTY BREATHING OR HIVES AFTER EATING OR HANDLING ANY FRUITS, OR VEGETABLES; SUCH KIWI, BANANAS, STONE FRUITS, OR CHESTNUTSNO LATEX RISK : DO YOU HAVE A PREVIOUS PERSONAL HISTORY OF MORE THAN NINE SURGERIES, SPINA BIFIDA, OR REPEATED CATHERIZATIONS? NO LATEX RISK : ARE YOU FREQUENTLY EXPOSED TO LATEX PRODUCTS IN YOUR OCCUPATION?NO RECREATIONAL DRUG USE DRUG USE?NO CAFFEINE CAFFEINE USE?YES ANGLICAN [id number] PROTESTANT LANGUAGE LANGUAGES SPOKEN:VENEZUELAN LEARNING BARRIERS / SPECIAL NEEDS BARRIERS TO LEARNING?NO HEARING IMPAIRED?YES HEARING AIDS BILATERALLY VISION IMPAIRED?YES COGNITIVELY IMPAIRED?NO :CORRECTIVE LENSES READINESS TO LEARN?YES OCCUPATION: DISABLED. DIET: REGULAR. EXERCISE: WALKS. MARITAL STATUS: . OTHERS AT HOME: SPOUSE, CHILD. PAIN CLINIC PFS, CLERGY, PUBLIC HEALTH REFERRALS PFS REFERRAL NEEDED?NO CLERGY REFERRAL NEEDED?NO PUBLIC HEALTH REFERRAL NEEDED?NO WAS THE PROVIDER NOTIFIED OF ANY PERTINENT INFO?YES HAS THE PATIENT BEEN EDUCATED REGARDING HIS/HER PLAN OF CARE?YES HAS THE PATIENT BEEN EDUCATED REGARDING PAIN, THE RISK FOR PAIN, THE IMPORTANCE OF EFFECTIVE PAIN MANAGEMENT, AND THE PAIN ASSESSMENT PROCESS?YES ADVANCE DIRECTIVE ADVANCE DIRECTIVE DISCUSSED WITH PATIENT:YES PT HAS NO ADVANCED DIRECTIVES, DECLINES INFORMATION AT THIS TIME. REVIEWED WITH PT 11/16/17 1048 BVREVIEWED WITH PT 01/04/18 1015 LASREVIEWED WITH PT 02/27/18 1020 BVREVIEWED WITH PATIENT 04/04/18 1111 JSREVIEWED WITH PATIENT 01/23/19 1212 JSREVIEWED WITH PATIENT 02/10/19 1054 NLJ. HOSPITALIZATION/MAJOR DIAGNOSTIC PROCEDURE SURGERY RELATED REVIEW OF SYSTEMS CONSTITUTIONAL: ANY RECENT FEVER NO . CHILLS NO . WEIGHT CHANGE OF UNKNOWN REASONS NO . GASTROENTEROLOGY: NEW UNEXPLAINABLE CHANGES IN BOWEL CONTROL NO . CONSTIPATION NO . GENITOURINARY: ANY NEW CHANGE IN BLADDER CONTROL? NO . NEUROLOGY: NEW ONSET DIZZINESS OR NEUROLOGICAL CHANGES NOT MENTIONED NO . NEW NUMBNESS OR PAIN PATTERNS NOT MENTIONED AND PERTINENT TO TODAY'S VISIT NO . CARDIOLOGY: NEW CHEST PRESSURE NO . NEW CHEST PAIN NO . RESPIRATORY: UNEXPLAINABLE COUGH NO . NEW SHORTNESS OF BREATH NO . VITAL SIGNS WT 230.6 LBS, HT 70 IN, BMI 33.08 INDEX, BP 140/65 MM HG, HR 81 /MIN, RR 18 /MIN, TEMP 96.6 F, OXYGEN SAT % 98%, NA INITIALS AW 1101. EXAMINATION GENERAL EXAMINATION: HEENT:HEAD:, NORMOCEPHALIC, EYES:, EYES NORMAL, NOSE:, NOSE CLEAR, THROAT: NORMAL . LUNGS:LUNG SOUNDS ARE CLEAR . HEART:HEART RATE REGULAR . ABDOMEN:SOFT AND NOT TENDER, NON-DISTENDED . MUSCULOSKELETAL:*, MUSCLE STRENGTH TESTING 2/5 BILATERAL LOWER EXT., PALPATION: POSITIVE FOR PAIN OVER L/S SPINE. POSITIVE FOR PAIN OVER L/S PARASPINALS.WELL HEALED SURGICAL SCAR OVER L/S SPINE.SPECIFIC POINT TENDERNESS OVER LEFT SIJ POSITIVE HELLEN TESTING OVER LEFT LEG TRIGGER POINTS:SPECIFIC TIGHT BANDS OF TISSUE OVER L/S PARASPINALS BILAT. NOTED. SKIN:NORMAL, NO RASH . NEUROLOGIC EXAM:MARKED WEAKNESS OVER RIGHT LEG COMPARED WITH LEFT. DIAGNOSTIC: . WALKS WITH ANTALGIC GAIT AND ASSIT OF CANE. ASSESSMENTS POSTLAMINECTOMY SYNDROME, NOT ELSEWHERE CLASSIFIED - M96.1 (PRIMARY) TREATMENT POSTLAMINECTOMY SYNDROME, NOT ELSEWHERE CLASSIFIED NOTES: I WILL HAVE PATIENT RETURN TO CLINIC TO VISIT WITH DR. CHASE TO DISCUSS INTERVENTIONAL TREATMENT OPTIONS. PROCEDURES PN WORKMANS' COMP OPINION IN YOUR OPINION, WAS THE INCIDENT THAT THE PATIENT DESCRIBED THE COMPETENT MEDICAL CAUSE OF THIS INJURY/ILLNESS? YES ARE THE PATIENT'S COMPLAINTS CONSISTENT WITH HIS/HER HISTORY OF THE INJURY/ILLNESS? YES IS THE PATIENT'S HISTORY OF THE INJURY/ILLNESS CONSISTENT WITH YOUR OBJECTIVE FINDING? YES WHAT IS THE PERCENTAGE OF TEMPORARY IMPAIRMENT? MODERATE TO MARKED = 66.7% IS THE PATIENT WORKING? NO DOCTOR ON SITE: BETSY QUESADA MD PROCEDURE CODES FA211 ESTABILISHED PATIENT [facility] FAC[facility] CHARGE DISPOSITION & COMMUNICATION FOLLOW UP 4-[address] CHASE (REASON: DISCUSS DCS TRIAL.NEEDS NURSE IN ROOM SHE HAS TROUBLE UNDERSTANDING DR CHASE) ELECTRONICALLY SIGNED BY ELLIS DAVEY ON 12/08/2019 AT 03:32 PM EDT DISCLAIMER : THIS IS A VISIT SUMMARY EXTRACTED FROM THE [employer] CHART. IT IS NOT A COPY OF THE [employer] PROGRESS NOTE. RONAL
== END ==
LOC: M PAIN 10:30
PROVIDERS: ATTEND Nurse Practitioner Family
DX: M96.1 Postlaminectomy syndrome, not elsewhere classified (principal)

== ENCOUNTER → 2020-01-02 | Outpatient (POV) | payer OTHER | LOC: M PAIN 09:15 | PROVIDERS: ATTEND Anesthesiology | DX: M96.1 Postlaminectomy syndrome, not elsewhere classified (principal) ==

== ENCOUNTER → 2020-02-13 | Outpatient (CLI) | payer OTHER | LOC: M PAIN 09:13 | PROVIDERS: ATTEND Anesthesiology | DX: M96.1 Postlaminectomy syndrome, not elsewhere classified (principal) ==

== ENCOUNTER → 2021-03-18 | Outpatient (CLI) | payer OTHER | LOC: M PAIN 13:00 | PROVIDERS: ATTEND Anesthesiology | DX: M96.1 Postlaminectomy syndrome, not elsewhere classified (principal); M51.16 Intervertebral disc disorders with radiculopathy, lumbar region; F17.210 Nicotine dependence, cigarettes, uncomplicated; Z88.8 Allergy status to other drugs, medicaments and biological substances; Z88.5 Allergy status to narcotic agent; Z91.040 Latex allergy status ==